=== PATIENT | female | born 1940 | race Caucasian/White ===

== ENCOUNTER 2016-07-06 19:37 | Inpatient (IN) ==
[2016-07-06] MEDS ORDERED: DUONEB NEB STA (20:12)
--- NOTE | 2016-07-06 20:18 | ED.PDOC ---
General ED Provider: Dr. SULY KING Chief Complaint: Respiratory Complaint Stated Complaint: Patient is a 75 year old female who comes to the ER with complains of cough shortness of breath and wheezing for the past two days. She was prescribed steroids and Keflex but has not filled the medications. She felt more short of breath then came to the ER Denies any sore throat. Time Seen by Physician: 20:15 Mode of Arrival: Wheelchair Information Source: Patient Exam Limitations: No limitations Primary Care Provider: MARA KENT Seen Within Last 72 Hours for Same Complaint By: Clinic, PCP Nursing and Triage Documentation Reviewed and Agree: Yes Respiratory Complaint Exam - Shortness of Air Complaint/Exam Onset/Duration: 1 day Symptoms Are: Still present Timing: Constant Initial Severity: Moderate Current Severity: Severe Character: Reports: Dyspnea on exertion Aggravating: Reports: URI Associated Signs and Symptoms: Reports: Wheezing, Edema Pulmonary Embolism Risk Factors: Reports: None Cardiac Risk Factors: Reports: None Pseudomonas Risk Factors: Reports: None Review of Systems - Review Of Systems Constitutional: Reports: No symptoms Eyes: Reports: No symptoms Ears, Nose, Mouth, Throat: Reports: No symptoms Respiratory: Reports: Cough, Short of air, Wheezing Cardiac: Reports: No symptoms GI: Reports: No symptoms : Reports: No symptoms Musculoskeletal: Reports: No symptoms Skin: Reports: No symptoms Neurological: Reports: Anxiety Endocrine: Reports: No symptoms Hematologic/Lymphatic: Reports: No symptoms All Other Systems: Reviewed and Negative Past Medical History - Past Medical History Endocrine: Reports: DM 2, Hypothyroid, Dyslipidemia Cardiovascular: Reports: Hypertension, CHF Respiratory: Reports: None Hematological: Reports: None Gastrointestinal: Reports: GERD Genitourinary: Reports: None Neuro/Psych: Reports: Seizure, Depression, Dementia Musculoskeletal: Reports: Arthritis Cancer: Reports: None Last Menstrual Period: UNKNOWN - Surgical History General Surgical History: Reports: Other (cataracts Eye Bilaterally) - Family History Family History: Reports: Diabetes - Social History Smoking Status: Never smoker Hx Substance Use: No Alcohol Screening: None Physical Exam - Physical Exam Appearance: Ill-appearing Eyes: ALEXIS, EOMI, Conjunctiva clear Neck: Supple Respiratory: Rhonchi, Wheezes GI/: Soft, Nontender, No masses, Bowel sounds normal, No Organomegaly Musculoskeletal: Edema (2-3 +) Skin: Warm Neurological: Sensation intact, Motor intact, Reflexes intact, Cranial nerves intact, Alert, Oriented Psychiatric: Anxious Interpretation - Radiology Interpretation Radiology Interpretation By: Radiologist Radiology Results: Positive (Atelectasis) - Associate Professor Of Library Media Rate: Normal - EKG Interpretation Time of EKG #1: 20:21 Interpretation: wide QRS rhythm, LBB EKG Comparison: No significant changes (to one done December 2015) Physician Notification - Case Discussed Physician Notified: Dr Kent Time of Notification: 21:35 (Admit to mena ) Critical Care Note - Critical Care Note Total Time (mins): 15 Course - Course Hematology/Chemistry: 07/06/16 20:25 07/06/16 20:25 Orders, Labs, Meds: Lab Review 07/06/16 07/06/16 07/06/16 20:12 20:25 21:11 WBC 7.51 RBC 4.64 Hgb 13.7 Hct 40.4 MCV 87.1 MCH 29.5 MCHC 33.9 RDW Coeff of Black 13.8 Plt Count 196 Immature Gran % (Auto) 0.8 Neut % (Auto) 84.4 Lymph % (Auto) 12.9 [place] % (Auto) 1.5 Eos % (Auto) 0.1 Baso % (Auto) 0.3 Immature Gran # (Auto) 0.1 Neut # 6.3 Lymph # 1.0 [place] # 0.1 L Eos # 0.0 Baso # 0.0 Puncture Site Lb O2 Saturation 96.0 ABG pH 7.394 ABG pCO2 31.4 L ABG pO2 84.0 L ABG HCO3 19.2 L ABG Total CO2 20 L ABG Base Excess -6 L Gregorio Test + FiO2 % 21.0 Sodium 134 L Potassium 4.3 Chloride 100 Carbon Dioxide 20 L Anion Gap 18.3 BUN 13 Creatinine 0.84 Estimated GFR (MDRD) 66.00 BUN/Creatinine Ratio 15.47 Glucose 341 H Lactic Acid 33.9 H Calcium 9.4 Total Bilirubin 0.44 AST 21 ALT 30 Alkaline Phosphatase 73 Total Creatine Kinase 32 Troponin I < 0.0100 B-Natriuretic Peptide 494 H Total Protein 7.8 Albumin 3.4 Globulin 4.4 Albumin/Globulin Ratio 0.77 Procalcitonin < 0.05 Urine Color Yellow Urine Clarity Clear Urine pH 7.0 Ur Specific [place] 1.015 Urine Protein Negative Urine Glucose (UA) 2+ Urine Ketones Trace Urine Blood 1+ Urine Nitrite Negative Urine Bilirubin Negative Urine Urobilinogen 0.2 Ur Leukocyte Esterase Trace Urine Microscopic RBC 5-10 Urine Microscopic WBC 5-10 Ur Squamous Epith Cells Not present Urine Bacteria Trace Orders Category Date Time Status ADMIT PATIENT INPATIENT .TO [facility] (MONITORED BED) ADMISSION 07/06/16 21: 51 Active ABG DRAW REQUEST Stat CARDIO 07/06/16 20:13 Completed ECHOCARDIOGRAM 2D-M MODE Routine CARDIO 07/06/16 21:51 Ordered EKG-(ED ONLY) Stat CARDIO 07/06/16 20:12 Completed NEBULIZER TREATMENT Routine CARDIO 07/06/16 21:57 Ordered NEBULIZER TREATMENT Stat CARDIO 07/06/16 20:13 Completed OXYGEN Routine CARDIO 07/06/16 21:51 Ordered ACTIVITY .Up ad Jesusita CARE 07/06/16 21:52 Active BLOOD GLUCOSE MONITORING 0630,1100,1700,2100 CARE 07/06/16 21:53 Active INTAKE & OUTPUT Q8HR CARE 07/06/16 21:51 Active TELEMETRY MONITORING TELE CARE 07/06/16 21:52 Active VITAL SIGNS Q4HR CARE 07/06/16 21:52 Active 2 GRAM SODIUM DIET DIETARY 07/06/16 Breakfast Ordered CARDIAC DIET DIETARY 07/06/16 Breakfast Ordered ED IV/MEDIPORT/POWERPORT .ONCE EMERGENCY 07/06/16 20:12 Active ABG Stat LAB 07/06/16 20:12 Completed B-TYPE NATRIURETIC PEPTIDE Stat LAB 07/06/16 20:25 Completed BLOOD CULTURE Stat LAB 07/06/16 20:25 Received CBC W/ AUTO DIFF DAILY@0600 LAB 07/07/16 06:00 Ordered CBC W/ AUTO DIFF DAILY@0600 LAB 07/08/16 06:00 Ordered CBC W/ AUTO DIFF DAILY@0600 LAB 07/09/16 06:00 Ordered CBC W/ AUTO DIFF DAILY@0600 LAB 07/10/16 06:00 Ordered CBC W/ AUTO DIFF DAILY@0600 LAB 07/11/16 06:00 Ordered CBC W/ AUTO DIFF DAILY@0600 LAB 07/12/16 06:00 Ordered CBC W/ AUTO DIFF DAILY@0600 LAB 07/13/16 06:00 Ordered CBC W/ AUTO DIFF DAILY@0600 LAB 07/14/16 06:00 Ordered CBC W/ AUTO DIFF DAILY@0600 LAB 07/15/16 06:00 Ordered CBC W/ AUTO DIFF DAILY@0600 LAB 07/16/16 06:00 Ordered CBC W/ AUTO DIFF DAILY@0600 LAB 07/17/16 06:00 Ordered CBC W/ AUTO DIFF DAILY@0600 LAB 07/18/16 06:00 Ordered CBC W/ AUTO DIFF DAILY@0600 LAB 07/19/16 06:00 Ordered CBC W/ AUTO DIFF DAILY@0600 LAB 07/20/16 06:00 Ordered CBC W/ AUTO DIFF DAILY@0600 LAB 07/21/16 06:00 Ordered CBC W/ AUTO DIFF DAILY@0600 LAB 07/22/16 06:00 Ordered CBC W/ AUTO DIFF DAILY@0600 LAB 07/23/16 06:00 Ordered CBC W/ AUTO DIFF DAILY@0600 LAB 07/24/16 06:00 Ordered CBC W/ AUTO DIFF DAILY@0600 LAB 07/25/16 06:00 Ordered CBC W/ AUTO DIFF DAILY@0600 LAB 07/26/16 06:00 Ordered CBC W/ AUTO DIFF Stat LAB 07/06/16 20:25 Completed COMPREHENSIVE METABOLIC PANEL DAILY@0600 LAB 07/07/16 06:00 Ordered COMPREHENSIVE METABOLIC PANEL DAILY@0600 LAB 07/08/16 06:00 Ordered COMPREHENSIVE METABOLIC PANEL DAILY@0600 LAB 07/09/16 06:00 Ordered COMPREHENSIVE METABOLIC PANEL DAILY@0600 LAB 07/10/16 06:00 Ordered COMPREHENSIVE METABOLIC PANEL DAILY@0600 LAB 07/11/16 06:00 Ordered COMPREHENSIVE METABOLIC PANEL DAILY@0600 LAB 07/12/16 06:00 Ordered COMPREHENSIVE METABOLIC PANEL DAILY@0600 LAB 07/13/16 06:00 Ordered COMPREHENSIVE METABOLIC PANEL DAILY@0600 LAB 07/14/16 06:00 Ordered COMPREHENSIVE METABOLIC PANEL DAILY@0600 LAB 07/15/16 06:00 Ordered COMPREHENSIVE METABOLIC PANEL DAILY@0600 LAB 07/16/16 06:00 Ordered COMPREHENSIVE METABOLIC PANEL DAILY@0600 LAB 07/17/16 06:00 Ordered COMPREHENSIVE METABOLIC PANEL DAILY@0600 LAB 07/18/16 06:00 Ordered COMPREHENSIVE METABOLIC PANEL DAILY@0600 LAB 07/19/16 06:00 Ordered COMPREHENSIVE METABOLIC PANEL DAILY@0600 LAB 07/20/16 06:00 Ordered COMPREHENSIVE METABOLIC PANEL DAILY@0600 LAB 07/21/16 06:00 Ordered COMPREHENSIVE METABOLIC PANEL DAILY@0600 LAB 07/22/16 06:00 Ordered COMPREHENSIVE METABOLIC PANEL DAILY@0600 LAB 07/23/16 06:00 Ordered COMPREHENSIVE METABOLIC PANEL DAILY@0600 LAB 07/24/16 06:00 Ordered COMPREHENSIVE METABOLIC PANEL DAILY@0600 LAB 07/25/16 06:00 Ordered COMPREHENSIVE METABOLIC PANEL DAILY@0600 LAB 07/26/16 06:00 Ordered COMPREHENSIVE METABOLIC PANEL Stat LAB 07/06/16 20:25 Completed CREATINE KINASE Q8H LAB 07/07/16 04:00 Ordered CREATINE KINASE Q8H LAB 07/07/16 12:00 Ordered CREATINE KINASE Stat LAB 07/06/16 20:25 Completed LACTIC ACID Stat LAB 07/06/16 20:25 Completed PROCALCITONIN Stat LAB 07/06/16 20:25 Completed TROPONIN I Q8H LAB 07/07/16 04:00 Ordered TROPONIN I Q8H LAB 07/07/16 12:00 Ordered TROPONIN I Stat LAB 07/06/16 20:25 Completed URINALYSIS C & S IF INDICATED Stat LAB 07/06/16 21:11 Completed URINE CULTURE Stat LAB 07/06/16 21:11 Received 0.9 % Sodium Chloride [Saline Flush] MEDS 07/06/16 20:12 Ordered 1 syr IVF PRN PRN Benzonatate [Tessalon Perles] MEDS 07/06/16 21:51 Ordered 100 mg PO TID PRN Enoxaparin Sodium [Lovenox] MEDS 07/07/16 09:00 Ordered 40 mg SUBCUT DAILY Furosemide [Lasix] MEDS 07/07/16 06:30 Ordered 20 mg IVP QDAC Insulin Regular, Human [Humulin R] MEDS 07/06/16 21:51 Ordered 0 - 15 unit SUBCUT PRN PRN Ipratropium/Albuterol Neb [Duoneb] MEDS 07/06/16 20:12 Discontinued 1 vial NEB ONCE STA Levalbuterol HCl [Xopenex 0.63 mg] MEDS 07/06/16 21:51 Ordered 1 vial NEB RTBID PRN Levofloxacin/D5w [Levaquin] 150 ml MEDS 07/06/16 21:35 Discontinued IV .STK-MED Levofloxacin/D5w [Levaquin] 500 mg MEDS 07/07/16 09:00 Ordered Premix 100 ml D5w 1 bag IV DAILY Levofloxacin/D5w [Levaquin] 750 mg MEDS 07/06/16 21:05 Discontinued Premix 150 ml D5w 1 bag IV ONCE Methylprednisolone Sod Succ/Pf [Solu-Medrol 125 mg] MEDS 07/07/16 05:00 Ordered 125 mg IVP Q8HR Ondansetron HCl/Pf [Zofran 4 mg/2 ml] MEDS 07/06/16 21:51 Ordered 4 mg IVP Q6H PRN RESUSCITATION STATUS Routine OTHERS 07/06/16 21:51 Completed CHEST, 1V AP ONLY Stat RADS 07/06/16 20:12 Completed Medications Generic Name Dose Route Start Last Admin Trade Name Freq PRN Reason Stop Dose Admin Amlodipine Besylate 5 mg 07/07/16 09:00 Norvasc PO DAILY [facility] Aspirin 81 mg 07/07/16 09:00 Aspirin Ec PO DAILY [facility] Benzonatate 100 mg 07/06/16 21:51 Tessalon Perles PO TID PRN Cough Divalproex Sodium 500 mg 07/07/16 09:00 Depakote PO BID MARY Divalproex Sodium 500 mg 07/07/16 00:10 07/07/16 00:30 Depakote PO 07/07/16 00:11 500 mg ONCE STA Administration Enoxaparin Sodium 40 mg 07/07/16 09:00 Lovenox SUBCUT DAILY [facility] Furosemide 20 mg 07/07/16 06:30 Lasix IVP QDAC [facility] Levofloxacin/Dextrose 500 mg/ 100 mls @ 100 mls/hr 07/07/16 09:00 Dextrose IV DAILY [facility] Insulin Human Regular 0 - 15 unit 07/06/16 21:51 Humulin R SUBCUT PRN PRN Hyperglycemica Protocol Levalbuterol HCl 1 vial 07/06/16 21:51 Xopenex 0.63 Mg NEB RTBID PRN Wheezing Levothyroxine Sodium 75 mcg 07/07/16 06:30 Synthroid PO QDAC [facility] Methylprednisolone Sodium Succinate 125 mg 07/07/16 05:00 Solu-Medrol 125 Mg IVP Q8HR [facility] Non-Formulary Medication 40 mg 07/07/16 09:00 Atorvastatin Calcium [Lipitor] PO DAILY [facility] Non-Formulary Medication 25 mg 07/07/16 09:00 Carvedilol [Coreg] PO DAILY [facility] Non-Formulary Medication 10 mg 07/07/16 09:00 Glipizide [Glucotrol] PO DAILY [facility] Non-Formulary Medication 1,000 unit 07/07/16 09:00 Cholecalciferol (Vitamin D3) [Vitamin D3] PO DAILY MARY Non-Formulary Medication 300 mg 07/07/16 09:00 Oxcarbazepine [Trileptal] PO DAILY MARY Non-Formulary Medication 600 mg 07/07/16 21:00 Oxcarbazepine [Trileptal] PO 2100 MARY Non-Formulary Medication 1 each 07/07/16 09:00 [place]-3 Fatty Acids/Fish Oil [Fish Oil 1,000 Mg Capsule] PO DAILY MARY Ondansetron HCl 4 mg 07/06/16 21:51 Zofran 4 Mg/2 Ml IVP Q6H PRN Nausea / Vomiting Sodium Chloride 1 syr 07/06/16 20:12 07/06/16 22:43 Saline Flush IVF 1 syr PRN PRN Administration To flush IV Discontinued Medications Generic Name Dose Route Start Last Admin Trade Name Freq PRN Reason Stop Dose Admin Albuterol/Ipratropium 1 vial 07/06/16 20:12 07/06/16 20:22 Duoneb NEB 07/06/16 20:13 1 vial ONCE STA Administration Furosemide 20 mg 07/06/16 22:25 07/06/16 22:44 Lasix IVP 07/06/16 22:26 20 mg ONCE STA Administration Levofloxacin/Dextrose 750 mg/ 150 mls @ 100 mls/hr 07/06/16 21:05 07/06/16 22 :00 Dextrose IV 07/06/16 22:34 100 mls/hr ONCE STA Administration Insulin Human Regular 8 unit 07/06/16 22:23 07/06/16 22:46 Humulin R SUBCUT 07/06/16 22:24 8 unit ONCE STA Administration Methylprednisolone Sodium Succinate 125 mg 07/06/16 22:06 07/06/16 22:39 Solu-Medrol 125 Mg IVP 07/06/16 22:07 125 mg ONCE STA Administration Vital Signs: Temp Pulse Resp BP Pulse Ox 07/06/16 19:40 97.7 F 95 H 20 159/86 H 95 Departure - Departure Time of Disposition: 22:11 Disposition: ADMITTED INPATIENT Discharge Problem: CHF exacerbation Qualifiers: Congestive heart failure type: systolic Qualifier Code: (I50.23) Acute on chronic systolic (congestive) heart failure Acute bronchitis Qualifiers: Bronchitis organism: other organism Qualifier Code: (J20.8) Acute bronchitis due to other specified organisms Condition: Stable Pt referred to PMD for follow-up: No Allergies/Adverse Reactions: Allergies Iodine and Iodide Containing Produc Adverse Reaction (Verified 07/06/16 19:48) Home Medications: Ambulatory Orders Aspirin [Adult Low Dose Aspirin EC] 81 mg PO DAILY 01/04/16 Atorvastatin Calcium [Lipitor] 40 mg PO DAILY 01/04/16 Carvedilol [Coreg] 25 mg PO DAILY 01/04/16 Divalproex Sodium [Depakote] 500 mg PO BID 01/04/16 Furosemide 20 mg PO QDAC 01/04/16 Glipizide [Glucotrol] 10 mg PO QDAC 01/04/16 Levothyroxine Sodium [Synthroid] 75 mcg PO QDAC 01/04/16 Oxcarbazepine [Trileptal] 300 mg PO DAILY 01/04/16 Sitagliptin Phos/Metformin HCl [Janumet 50-500 mg Tablet] 1 tab PO 1700 Oxcarbazepine [Trileptal] 600 mg PO BEDTIME 01/05/16 Amlodipine Besylate 5 mg PO DAILY 07/06/16 Cholecalciferol (Vitamin D3) [Vitamin D3] 1,000 unit PO DAILY 07/06/16 [place]-3 Fatty Acids/Fish Oil [Fish Oil 1,000 mg Capsule] 1 each PO DAILY Furosemide 20 mg PO DAILY PRN 07/07/16
[2016-07-06 20:39] LABS: BASOPHILS % (AUTO) 0.3 % (0.0-3.0); EOSINOPHILS % (AUTO) 0.1 % (0.0-7.0); HEMATOCRIT 40.4 % (37.0-47.0); HEMOGLOBIN 13.7 g/dl (12.0-16.0); IMMATURE GRANULOCYTE % (AUTO) 0.8 % (0.0-5.0); LYMPHOCYTES % (AUTO) 12.9 (10.0-50.0); MEAN CORPUSCULAR HEMOGLOBIN 29.5 pg (27.0-31.0); MEAN CORPUSCULAR HGB CONC 33.9 (31.8-35.4); MEAN CORPUSCULAR VOLUME 87.1 fl (81.0-99.0); MONOCYTES # (AUTO) 0.1 K/uL (0.4-2.0); MONOCYTES % (AUTO) 1.5 (0-10); NEUTROPHILS # (AUTO) 6.3 K/ul (2.0-6.9); NEUTROPHILS % (AUTO) 84.4; PLATELET COUNT 196 10^3/uL (140-440); RED BLOOD COUNT 4.64 10^6/ul (4.20-5.40); WHITE BLOOD COUNT 7.51 K/ul (4.6-10.2)
[2016-07-06 20:40] LABS: ABG BASE EXCESS -6 (-2.0-2.0); ABG HCO3 19.2 (22.0-26.0); ABG PCO2 31.4 mmHg (35-45); ABG PH 7.394 (7.35-7.45); ABG TCO2 20 (22.0-28.0)
[2016-07-06 21:05] LABS: ALANINE AMINOTRANSFERASE 30 U/L (12-78); ALBUMIN 3.4 g/dL (3.4-5.0); ALBUMIN/GLOBULIN RATIO 0.77; ALKALINE PHOSPHATASE 73 U/L (53-141); ANION GAP 18.3; ASPARTATE AMINO TRANSFERASE 21 U/L (15-37); BILIRUBIN,TOTAL 0.44 mg/dL (0.00-1.20); BLOOD UREA NITROGEN 13 mg/dL (7-18); BUN/CREATININE RATIO 15.47; CALCIUM 9.4 mg/dL (8.2-10.2); CARBON DIOXIDE 20 mmol/L (23-31); CHLORIDE 100 mmol/L (98-107); CREATINE KINASE 32 U/L; CREATININE 0.84 mg/dL (0.60-1.30); GLUCOSE 341 mg/dL (82-115); POTASSIUM 4.3 mmol/L (3.5-5.10); SODIUM 134 mmol/L (136-145); TOTAL PROTEIN 7.8 g/dL (5.8-8.1)
[2016-07-06] MEDS ORDERED: LEVAQUIN 750 MG in PREMIX 150 ML D5W 1 BAG IV STA (21:05)
--- NOTE | 2016-07-06 21:09 | DI ---
EXAM: Single view chest. HISTORY: Shortness of breath COMPARISON: 08/22/2007 FINDINGS: A single portable AP view of the chest. The lung volumes are normal. Bibasilar opacit ies seen which may be due to atelectasis. This is situated by low lung volumes and soft tissue atte nuation. The heart size and pulmonary vasculature are within normal limits. There are no suspiciou s pulmonary nodules. The pulmonary interstitium is normal. The aorta is tortuous and calcified. The osseous structures show mild degenerative changes consistent with age. IMPRESSION: Bibasilar atelectasis. Recommend follow-up PA and lateral views of the chest if symptoms persist.
[2016-07-06] MEDS ORDERED: LEVAQUIN 150 ML IV ONE (21:35)
[2016-07-06 21:40] LABS: BILIRUBIN,URINE Negative (NEGATIVE); KETONES,URINE Trace (NEGATIVE); LEUKOCYTE ESTERASE ,URINE Trace (NEGATIVE); NITRITE,URINE Negative (NEGATIVE); PROTEIN,URINE Negative (NEGATIVE); URINE, BLOOD 1+ (NEGATIVE)
[2016-07-06 21:41] LABS: ADD URINE MICROSCOPIC YES
[2016-07-06 21:42] LABS: BACTERIA,URINE TRACE (NOT PRESENT)
[2016-07-06] MEDS ORDERED: XOPENEX 0.63 MG NEB PRN (21:51)
[2016-07-06] MEDS ORDERED: ZOFRAN 4 MG/2 ML IVP PRN (21:51)
[2016-07-06] MEDS ORDERED: TESSALON PERLES PO PRN (21:51)
[2016-07-06] MEDS ORDERED: SOLU-MEDROL 125 MG IVP STA (22:06)
[2016-07-06] MEDS ORDERED: HUMULIN R SUBCUT STA (22:23)
[2016-07-06] MEDS ORDERED: LASIX IVP STA (22:25)
[2016-07-06 23:50] VITALS: BMI 32.0
[2016-07-07] MEDS ORDERED: DEPAKOTE PO STA (00:10)
[2016-07-07] MEDS ORDERED: DEPAKOTE ONE (00:15)
[2016-07-07] MEDS ORDERED: TYLENOL PO STA ×2 (02:35→21:58)
[2016-07-07] MEDS: SYNTHROID PO SCH (06:08)
[2016-07-07] MEDS: LASIX IVP SCH (06:09)
[2016-07-07] MEDS: SOLU-MEDROL 125 MG IVP SCH ×3 (06:11→20:27)
[2016-07-07 06:27] LABS: BASOPHILS % (AUTO) 0.3 % (0.0-3.0); HEMATOCRIT 38.3 % (37.0-47.0); HEMOGLOBIN 13.1 g/dl (12.0-16.0); IMMATURE GRANULOCYTE % (AUTO) 1.3 % (0.0-5.0); LYMPHOCYTES % (AUTO) 15.6 (10.0-50.0); MEAN CORPUSCULAR HEMOGLOBIN 29.4 pg (27.0-31.0); MEAN CORPUSCULAR HGB CONC 34.2 (31.8-35.4); MEAN CORPUSCULAR VOLUME 86.1 fl (81.0-99.0); MONOCYTES # (AUTO) 0.1 K/uL (0.4-2.0); MONOCYTES % (AUTO) 1.1 (0-10); NEUTROPHILS # (AUTO) 5.2 K/ul (2.0-6.9); NEUTROPHILS % (AUTO) 81.7; PLATELET COUNT 176 10^3/uL (140-440); RED BLOOD COUNT 4.45 10^6/ul (4.20-5.40); WHITE BLOOD COUNT 6.39 K/ul (4.6-10.2)
[2016-07-07 06:43] LABS: ALBUMIN 3.5 g/dL (3.4-5.0); ALBUMIN/GLOBULIN RATIO 0.92; ANION GAP 18.1; BILIRUBIN,TOTAL 0.48 mg/dL (0.00-1.20); BUN/CREATININE RATIO 18.18; CALCIUM 8.8 mg/dL (8.2-10.2); CREATININE 0.77 mg/dL (0.60-1.30); POTASSIUM 4.1 mmol/L (3.5-5.10); TOTAL PROTEIN 7.3 g/dL (5.8-8.1)
[2016-07-07] MEDS: HUMULIN R SUBCUT PRN ×4 (06:54→20:29)
[2016-07-07] MEDS ORDERED: NON-FORMULARY MEDICATION (Atorvastatin Calcium [Lipitor] 40 MG) PO SCH ×22 (09:00)
[2016-07-07] MEDS ORDERED: NON-FORMULARY MEDICATION (Oxcarbazepine [Trileptal] 300 MG) PO SCH (09:00)
[2016-07-07] MEDS ORDERED: NON-FORMULARY MEDICATION (Glipizide [Glucotrol] 10 MG) PO SCH ×22 (09:00)
[2016-07-07] MEDS ORDERED: NON-FORMULARY MEDICATION (Cholecalciferol (Vitamin D3) [Vitamin D3] 1,000 UNIT) PO SCH ×22 (09:00)
[2016-07-07] MEDS ORDERED: NON-FORMULARY MEDICATION (Omega-3 Fatty Acids/Fish Oil [Fish Oil 1,000 Mg Capsule] 1 EACH) PO SCH ×22 (09:00)
[2016-07-07] MEDS ORDERED: NON-FORMULARY MEDICATION (Carvedilol [Coreg] 25 MG) PO SCH ×22 (09:00)
[2016-07-07] MEDS: ASPIRIN EC PO SCH (09:16)
[2016-07-07] MEDS: GLUCOTROL PO SCH (09:16)
[2016-07-07] MEDS: COREG PO SCH (09:16)
[2016-07-07] MEDS: COZAAR PO SCH (09:17)
[2016-07-07] MEDS: LIPITOR PO SCH (09:18)
[2016-07-07] MEDS: DEPAKOTE PO SCH ×2 (09:18→20:26)
[2016-07-07] MEDS: NORVASC PO SCH (09:20)
[2016-07-07] MEDS: LOVENOX SUBCUT SCH (09:20)
[2016-07-07] MEDS: OMEGA-3 FISH OIL PO SCH (09:20)
[2016-07-07] MEDS: VITAMIN D PO SCH (09:21)
[2016-07-07] MEDS: TRILEPTAL PO SCH (09:21)
--- NOTE | 2016-07-07 10:25 | PCM.PROG ---
Attending Provider: ATTENDING PROVIDER: Dr. MARA KENT DATE OF SERVICE: 07/07/16 SUBJECTIVE: This 75 year old WHITE/ F was hospitalized 07/06/16. The patient is hospitalized with acute bronchitis, possibility of CHF. No orthopnea, no PND. No chest pain. The patient complains of a mild cough. She states she her appetite is normal. Hydration status is better than yesterday. REVIEW OF SYSTEMS: CONSTITUTIONAL: No night sweats. No fatigue, malaise, lethargy. No fever or chills. HEENT: Eyes: No visual changes. No eye pain. No eye discharge. ENT: No runny nose. No epistaxis. No sinus pain. No odynophagia. No congestion. RESPIRATORY: Mild cough and congestion. No hemoptysis. CARDIOVASCULAR: No angina symptoms. No CHF symptoms. No atypical chest pain for CAD. No palpitations. No shortness of breath. GASTROINTESTINAL: No abdominal pain. No nausea or vomiting. No diarrhea or constipation. No hematemesis. No hematochezia. GENITOURINARY: No urgency. No frequency. No dysuria. No hematuria. No obstructive symptoms. No discharge. No pain. No significant abnormal bleeding. MUSCULOSKELETAL: No musculoskeletal pain; no joint swelling. NEUROLOGICAL: Awake, alert, oriented to time, place and person. No headache. No neck pain. No syncope. No seizures. No dizziness. PSYCHIATRIC: Not anxious. No depression. No suicidal thoughts. No homicidal thoughts. SKIN: No rash. No lesions. No wounds. ENDOCRINE: No unexplained weight loss. No weight gain. HEMATOLOGIC/LYMPHATIC: No anemia. No purpura. No petechiae. No prolonged or excessive bleeding. No palpable lymph nodes. PHYSICAL EXAMINATION: GENERAL: The patient is awake, alert and oriented, lying flat in bed in no distress. VITAL SIGNS: Temperature 97.4 F, Pulse 69, Respiratory Rate 21, BP 168/83, Pulse Ox 97% HEENT: Head normocephalic, atraumatic. Eyes: Extraocular muscles are intact. Pupils are equal, round and reactive to light and accommodation. Ears: No lesions. Nose appeared normal. Throat: No exudate or erythema. NECK: Supple. No JVD, no carotid bruit. No lymphadenopathy or thyromegaly. LUNGS: Decreased breath sounds. Percussion note normal. Chest symmetrical. HEART: S1, S2, no S3. No murmurs. No cyanosis or clubbing. No ascites. Pulses: Dorsalis pedis and posterior tibial pulses +1 to +2 both sides. ABDOMEN: Soft. Non-tender. Bowel sounds active. No CVA tenderness. No mass felt. EXTREMITIES: Trace edema. Full range of motion of all extremities, equal. NEUROLOGIC: No focal deficit. Cranial nerves II through XII are grossly intact. No headache, no double vision or headache. SKIN: Not dry. Intact. Turgor-normal. LYMPHATIC: No palpable lymph nodes/no lymphedema. MUSCULOSKELETAL: Normal joints with no swelling. Muscle tone is normal. LAB REVIEW: 07/07/16 06:00 07/07/16 06:00 07/07/16 06:00: WBC 6.39, RBC 4.45, Hgb 13.1, Hct 38.3, MCV 86.1, MCH 29.4, MCHC 34.2, RDW Coeff of Black 13.6, Plt Count 176, Immature Gran % (Auto) 1.3, Neut % (Auto) 81.7, Lymph % (Auto) 15.6, [place] % (Auto) 1.1, Eos % (Auto) 0.0, Baso % (Auto) 0.3, Immature Gran # (Auto) 0.1, Neut # 5.2, Lymph # 1.0, [place] # 0.1 L, Eos # 0.0, Baso # 0.0, Sodium 134 L, Potassium 4.1, Chloride 98, Carbon Dioxide 22 L, Anion Gap 18.1, BUN 14, Creatinine 0.77, Estimated GFR (MDRD) 73.00, BUN/Creatinine Ratio 18.18, Glucose 174 H D, Lactic Acid 32.4 H, Calcium 8.8, Total Bilirubin 0.48, AST 19, ALT 29, Alkaline Phosphatase 71, Troponin I < 0.0100, Total Protein 7.3, Albumin 3.5, Globulin 3.8, Albumin/Globulin Ratio 0.92 ASSESSMENT: 1. Acute bronchitis, possible CHF 2. Hypertension 3. Diabetes mellitus type 2 4. Hypothyroidism 5. Dyslipidemia 6. CHF 7. GERD 8. Sleep apnea with CPAP 9. Bilateral lens implants PLAN: 1. T4 and TSH 2. BNP tomorrow 3. Echocardiogram 4. Cozaar 50 mg p.o. today and daily 5. Rapid Flu A & B 6. Xopenex q.i.d. 7. Continue other medications Plan and coordination of the patient's care discussed in the presence of Domestic Helper and nurse. CONDITION: Stable SCRIBED BY: CLAUDIA MCCALL Clay Pigeon Loader scribed while in presence of service performed by Dr. MARA KENT on 07/07/16 ([id number])
[2016-07-07 10:30] LABS: CREATINE KINASE 27 U/L
[2016-07-07] MEDS: XOPENEX 1.25 MG NEB SCH ×3 (11:57→23:16)
[2016-07-07 12:45] LABS: TROPONIN I 0.013 ng/ml (0.0000-0.4000)
--- NOTE | 2016-07-07 13:17 | HP ---
DATE OF SERVICE: 07/06/16 REASON FOR HOSPITALIZATION: Cough and congestion and pneumonitis HISTORY OF PRESENT ILLNESS: The patient is a 65 year old white female was seen in the office with cough and congestion with yellowish sputum production of three days duration in the office. The patient was given PO antibiotics were steroid shot Phenergan with codeine and Prednisone. The patient ended up in the ER with worsening of the condition in the mean time. REVIEW OF SYSTEMS: CONSTITUTIONAL: No night sweats. Weakness and fatigue. No fever or chills. HEENT: Eyes: No visual changes. No eye pain. No eye discharge. ENT: No runny nose. No epistaxis. No sinus pain. No sore throat. No odynophagia. No ear pain. No congestion.Sinus drainage. RESPIRATORY: Cough and congestion with yellowish sputum production. No hemoptysis. CARDIOVASCULAR: No angina symptoms. No CHF symptoms. No atypical chest pain for CAD. No palpitations. No shortness of breath. Pleuritic type of pain bilaterally. No PND. No orthopnea. GASTROINTESTINAL: No abdominal pain. No nausea or vomiting. No diarrhea or constipation. No hematemesis. No hematochezia. Appetite is so so. No reflux symptoms. GENITOURINARY: No urgency. No frequency. No dysuria. No hematuria. No obstructive symptoms. No discharge. No pain. No significant abnormal bleeding. MUSCULOSKELETAL: No musculoskeletal pain. No joint swelling. No arthritis. NEUROLOGICAL: No headache. No neck pain. No syncope. No seizures. No dizziness. PSYCHIATRIC: Not anxious. No depression. No suicidal thoughts. No homicidal thoughts. SKIN: No rash. No lesions. No wounds. ENDOCRINE: No unexplained weight loss. No weight gain. HEMATOLOGIC/LYMPHATIC: No anemia. No purpura. No petechiae. No prolonged or excessive bleeding. No palpable lymph nodes. PERSONAL/FAMILY/SOCIAL HISTORY: The patient is and lives with the daughter. Non-smoker and no alcohol abuse. She does all activity of daily living. PAST MEDICAL/SURGICAL PROBLEMS: CHF Diabetes Mellitus Hypothyroidism Sleep apnea Cholelithiasis MEDICATIONS: (Home) Depakote Janumet Trileptal Glipizide Furosemide Coreg Lipitor Aspirin Levothyroxine Trileptal Vitamin D3 Amlodipine Besylate [place]-3 Furosemide ALLERGIES: Iodine and Iodide containing Produc PHYSICAL EXAMINATION: GENERAL: The patient is oriented to time, place and person. VITAL SIGNS: Temperature 98.4, pulse 70, respiratory rate 16, blood pressure 140/80 and pulse ox 96% on room air. Height 5'4 and weighs 185 pounds with BMI 32. HEENT: Head normocephalic, atraumatic. Eyes: Extraocular muscles are intact. Pupils are equal, round and reactive to light and accommodation. Ears: No lesions. Nose appeared normal. Throat: No exudate or erythema. NECK: Supple. No JVP, no carotid bruit. No lymphadenopathy or thyromegaly. LUNGS: Decreased breath sounds with mild wheeze. Percussion note normal. Chest symmetrical. HEART: S1, S2, no S3. No murmurs. No cyanosis or clubbing. No ascites. Pulses: Dorsalis pedis and posterior tibial pulses +1 to +2 both sides. ABDOMEN: Soft. Nontender. Bowel sounds active. No CVA tenderness. No mass felt. EXTREMITIES: Trace to 1+ pitting edema. Full range of motion of all extremities, equal. Pulses +1 bilaterally. NEUROLOGIC: No focal deficit. Cranial nerves II through XII are grossly intact. No headache, no double vision or headache. SKIN: Dry. Intact. Turgor - normal. LYMPHATIC: No palpable lymph nodes/no lymphedema. MUSCULOSKELETAL: Normal joints with no swelling. Muscle tone is normal. ASSESSMENT: 1. Acute bronchitis/ Pneumonitis 2. History of CHF 3. History Seizure disorder 4. Diabetes Mellitus 5. Hypothyroidism 6. Dementia 7. Hypertension 8. Sleep apnea 9. Dyslipidemia 10. Diverticulosis of colon 11. Cholelithiasis PLAN: 1. IV antibiotics 2. Levaquin 3. Solu-Cortef 125mg Q 8 hour 4. Routine telemetry orders 5. Antitussives 6. NEBS treatment 7. Telemetry 8. IV Lasix 20mg 9. Continue the rest of the home medications 10. Put her on sliding scale, the patient glucose is more than 300. She is going to up with the IV insulin. 11. The patient's lactic acid level is high. Will discontinue Janumet since creatinine and BUN is normal 12. Will also do echocardiogram which was supposed for her MV function evaluation. TIME SPENT: More than 70 minutes. [facility]
[2016-07-07 13:55] LABS: FLU INTERNAL QC INTERNAL QC VALID; RAPID FLU A NEGATIVE (NEGATIVE); RAPID FLU B NEGATIVE (NEGATIVE)
--- NOTE | 2016-07-07 16:02 | RS.SLPCNOT ---
Speech Case Note Date of Note: 07/07/16 Title: Speech Screen Note: LAW REPORTER was consulted for swallow screen with reports of coughing/choking when eating and swallows multiple times for single bite. LAW REPORTER completed chart review which was significant for CHF, dementia, and acute bronchitis. LAW REPORTER completed screeen with RN and pt. RN reported no concerns for swallow difficulty , including swallowing medications. LAW REPORTER verbally questioned pt, who stated no concerns with swallow function. LAW REPORTER utilized laryngeal palpation with four trials of thin liquids via straw. No overt s/s of aspiration noted. Laryngeal elevation was WNL. LAW REPORTER noted 1x multiple swallow. LAW REPORTER recommends no skilled ST at this time.
[2016-07-07] MEDS ORDERED: OXCARBAZEPINE 600 MG PO SCH (21:00)
[2016-07-07] MEDS ORDERED: LEVAQUIN 500 MG in PREMIX 100 ML D5W 1 BAG IV SCH (21:00)
[2016-07-07] MEDS ORDERED: TRILEPTAL PO SCH (21:00)
[2016-07-07] MEDS ORDERED: TYLENOL ONE (21:57)
[2016-07-08] MEDS: XOPENEX 1.25 MG NEB SCH ×2 (05:13→11:08)
[2016-07-08] MEDS: SYNTHROID PO SCH (05:49)
[2016-07-08] MEDS: LASIX IVP SCH (05:49)
[2016-07-08] MEDS: SOLU-MEDROL 125 MG IVP SCH ×2 (05:50→14:38)
[2016-07-08] MEDS: HUMULIN R SUBCUT PRN ×3 (06:11→17:05)
[2016-07-08 06:48] LABS: BASOPHILS % (AUTO) 0.1 % (0.0-3.0); HEMATOCRIT 35.9 % (37.0-47.0); HEMOGLOBIN 12.8 g/dl (12.0-16.0); LYMPHOCYTES # (AUTO) 1.4 K/uL (0.60-3.4); LYMPHOCYTES % (AUTO) 12.7 (10.0-50.0); MEAN CORPUSCULAR HEMOGLOBIN 29.8 pg (27.0-31.0); MEAN CORPUSCULAR HGB CONC 35.7 (31.8-35.4); MEAN CORPUSCULAR VOLUME 83.7 fl (81.0-99.0); MONOCYTES # (AUTO) 0.3 K/uL (0.4-2.0); MONOCYTES % (AUTO) 2.8 (0-10); NEUTROPHILS % (AUTO) 83.4; PLATELET COUNT 192 10^3/uL (140-440); RED BLOOD COUNT 4.29 10^6/ul (4.20-5.40); WHITE BLOOD COUNT 10.75 K/ul (4.6-10.2)
[2016-07-08 07:05] LABS: ALBUMIN 3.6 g/dL (3.4-5.0); ANION GAP 18.1; BILIRUBIN,TOTAL 0.47 mg/dL (0.00-1.20); BUN/CREATININE RATIO 26.58; CALCIUM 9.2 mg/dL (8.2-10.2); CREATININE 0.79 mg/dL (0.60-1.30); POTASSIUM 4.1 mmol/L (3.5-5.10); TOTAL PROTEIN 7.2 g/dL (5.8-8.1)
[2016-07-08] MEDS: GLUCOTROL PO SCH (07:57)
[2016-07-08] MEDS: ASPIRIN EC PO SCH (07:57)
[2016-07-08] MEDS: COREG PO SCH (08:10)
[2016-07-08] MEDS: DEPAKOTE PO SCH (09:02)
[2016-07-08] MEDS: VITAMIN D PO SCH (09:02)
[2016-07-08] MEDS: TRILEPTAL PO SCH (09:02)
[2016-07-08] MEDS: OMEGA-3 FISH OIL PO SCH (09:03)
[2016-07-08] MEDS: COZAAR PO SCH (09:03)
[2016-07-08] MEDS: LOVENOX SUBCUT SCH (09:04)
[2016-07-08] MEDS: NORVASC PO SCH (09:04)
[2016-07-08] MEDS: LIPITOR PO SCH (09:04)
--- NOTE | 2016-07-08 12:58 | PCM.PROG ---
Attending Provider: ATTENDING PROVIDER: Dr. MARA KENT DATE OF SERVICE: 07/08/16 SUBJECTIVE: This 75 year old WHITE/ F was hospitalized 07/06/16. The patient is hospitalized with acute bronchitis and chronic lung disease. The patient has dilated cardiomyopathy with CHF, which seems to be under control. The patient states she does feel better. She has been up to the bathroom with standby assistance and using her cane. She states she had a mild cough last with with some phlegm. Discussed plan for discharge. She states she is ready to go home. REVIEW OF SYSTEMS: CONSTITUTIONAL: No night sweats. No fatigue, malaise, lethargy. No fever or chills. HEENT: Eyes: No visual changes. No eye pain. No eye discharge. ENT: No runny nose. No epistaxis. No sinus pain. No odynophagia. No congestion. RESPIRATORY: Mild cough. No hemoptysis. CARDIOVASCULAR: No angina symptoms. No CHF symptoms. No atypical chest pain for CAD. No palpitations. No shortness of breath. GASTROINTESTINAL: No abdominal pain. No nausea or vomiting. No diarrhea or constipation. No hematemesis. No hematochezia. GENITOURINARY: No urgency. No frequency. No dysuria. No hematuria. No obstructive symptoms. No discharge. No pain. No significant abnormal bleeding. MUSCULOSKELETAL: No musculoskeletal pain; no joint swelling. NEUROLOGICAL: Awake, alert, oriented to time, place and person. No headache. No neck pain. No syncope. No seizures. No dizziness. PSYCHIATRIC: Not anxious. No depression. No suicidal thoughts. No homicidal thoughts. SKIN: No rash. No lesions. No wounds. ENDOCRINE: No unexplained weight loss. No weight gain. HEMATOLOGIC/LYMPHATIC: No anemia. No purpura. No petechiae. No prolonged or excessive bleeding. No palpable lymph nodes. PHYSICAL EXAMINATION: GENERAL: The patient is awake, alert and oriented, sitting up in bed in no distress. VITAL SIGNS: Temperature 97.7 F, Pulse 67, Respiratory Rate 20, BP 144/65, Pulse Ox 100% HEENT: Head normocephalic, atraumatic. Eyes: Extraocular muscles are intact. Pupils are equal, round and reactive to light and accommodation. Ears: No lesions. Nose appeared normal. Throat: No exudate or erythema. NECK: Supple. No JVD, no carotid bruit. No lymphadenopathy or thyromegaly. LUNGS: Clear to auscultation. Percussion note normal. Chest symmetrical. HEART: S1, S2, no S3. No murmurs. No cyanosis or clubbing. No ascites. Pulses: Dorsalis pedis and posterior tibial pulses +1 to +2 both sides. ABDOMEN: Soft. Non-tender. Bowel sounds active. No CVA tenderness. No mass felt. EXTREMITIES: No edema. Full range of motion of all extremities, equal. NEUROLOGIC: No focal deficit. Cranial nerves II through XII are grossly intact. No headache, no double vision or headache. SKIN: Not dry. Intact. Turgor-normal. LYMPHATIC: No palpable lymph nodes/no lymphedema. MUSCULOSKELETAL: Normal joints with no swelling. Muscle tone is normal. LAB REVIEW: 07/08/16 06:40 07/08/16 06:40 07/08/16 06:40: WBC 10.75 H, RBC 4.29, Hgb 12.8, Hct 35.9 L, MCV 83.7, MCH 29.8 , MCHC 35.7 H, RDW Coeff of Black 13.3, Plt Count 192, Immature Gran % (Auto) 1.0 , Neut % (Auto) 83.4, Lymph % (Auto) 12.7, [place] % (Auto) 2.8, Eos % (Auto) 0.0, Baso % (Auto) 0.1, Immature Gran # (Auto) 0.1, Neut # 9.0 H, Lymph # 1.4, [place] # 0.3 L, Eos # 0.0, Baso # 0.0, Sodium 129 L, Potassium 4.1, Chloride 92 L, Carbon Dioxide 23, Anion Gap 18.1, BUN 21 H, Creatinine 0.79, Estimated GFR ( MDRD) 71.00, BUN/Creatinine Ratio 26.58, Glucose 215 H, Calcium 9.2, Total Bilirubin 0.47, AST 16, ALT 26, Alkaline Phosphatase 66, B-Natriuretic Peptide 222 H, Total Protein 7.2, Albumin 3.6, Globulin 3.6, Albumin/Globulin Ratio 1.00 07/07/16 13:10: Influenza A (Rapid) Negative, Influenza B (Rapid) Negative 07/07/16 12:00: Total Creatine Kinase 28, Troponin I 0.0130 07/07/16 06:00: Total Creatine Kinase 27, TSH 0.501, Free T4 1.05 ASSESSMENT: 1. Bronchitis, which is a lot better. 2. COPD, under control. 3. CHF, under control. 4. The problem is that the patient has early dementia and is not able to take medication on a regular basis. She lives alone with the help of her daughter. PLAN: 1. Discharge home later today. 2. Levaquin 500 mg p.o. daily for five days 3. Add Prednisone 10 mg b.i.d. for five days 4. Cozaar 50 mg p.o. daily Plan and coordination of the patient's care discussed in the presence of Disability Coordinator and nurse. EDUCATION: Discussed plans for discharge with the patient. Discussed medications and their side effects; risks and benefits of steroids to include avascular necrosis , osteoporosis, cataracts, et cetera. The patient voiced understanding and is in agreement with the plan. CONDITION: Stable. SCRIBED BY: CLAUDIA MCCALL, Carton Liner scribed while in presence of service performed by Dr. MARA KENT on 07/08/16 ([id number])
[2016-07-08] MEDS ORDERED: TYLENOL PO PRN (14:08)
--- NOTE | 2016-07-08 14:46 | CM.DICTOOL ---
ADMISSION: 07/06/16 21:54 FINAL DIAGNOSIS ACUTE BRONCHITIS POSSIBLE CHF SLEEP APNEA (USES C-PAP) DM, TYPE 2 HYPOTHYROIDISM DYSLIPIDEMIA HYPERTENSION CHF BY HISTORY GERD SEIZURES DEMENTIA DEPRESSION/ANXIETY ARTHRITIS BILATERAL CATARACT EXTRACTION WITH LENS IMPLANT LAST VITALS Temp Pulse Resp BP Pulse Ox 97.7 F 67 20 144/65 H 100 07/08/16 06:00 07/08/16 06:00 07/08/16 06:00 07/08/16 06:00 07/08/16 06:00 ACTIVE MEDICATIONS Amlodipine Besylate (Norvasc) 5 mg PO DAILY REPLACED BY [facility] Last Admin: 07/08/16 09:04 Dose: 5 mg Aspirin (Aspirin Ec) 81 mg PO DAILYWM REPLACED BY [facility] Last Admin: 07/08/16 07:57 Dose: 81 mg Atorvastatin Calcium (Lipitor) 40 mg PO DAILY REPLACED BY [facility] Last Admin: 07/08/16 09:04 Dose: 40 mg Carvedilol (Coreg) 25 mg PO DAILYWM REPLACED BY [facility] Last Admin: 07/08/16 08:10 Dose: 25 mg Cholecalciferol (Vitamin D) 1,000 unit PO DAILY REPLACED BY [facility] Last Admin: 07/08/16 09:02 Dose: 1,000 unit Divalproex Sodium (Depakote) 500 mg PO BID REPLACED BY [facility] Last Admin: 07/08/16 09:02 Dose: 500 mg Fish Oil ([place]-3 Fish Oil) 1,000 mg PO DAILY REPLACED BY [facility] Last Admin: 07/08/16 09:03 Dose: 1,000 mg Furosemide (Lasix) 20 mg PO QDAC REPLACED BY [facility] Last Admin: 07/08/16 05:49 Dose: 20 mg Furosemide (Lasix) 20 mg PO DAILY PRN fluid overload Glipizide (Glucotrol) 10 mg PO DAILYWM REPLACED BY [facility] Last Admin: 07/08/16 07:57 Dose: 10 mg Levofloxacin/Dextrose 500 mg PO DAILY X 5 DAYS REPLACED BY [facility] (NEW) Last Admin: 07/07/16 20:26 Dose: 100 mls/hr Levothyroxine Sodium (Synthroid) 75 mcg PO QDAC REPLACED BY [facility] Last Admin: 07/08/16 05:49 Dose: 75 mcg Losartan Potassium (Cozaar) 50 mg PO DAILY REPLACED BY [facility] (NEW) Last Admin: 07/08/16 09:03 Dose: 50 mg Oxcarbazepine (Trileptal) 300 mg PO DAILY REPLACED BY [facility] Last Admin: 07/08/16 09:02 Dose: 300 mg Oxcarbazepine (Trileptal) 600 mg PO BEDTIME MARY Last Admin: 07/07/16 20:26 Dose: 600 mg Prednisone 10 mg PO BID with food x5 days (New) Sitagliptin Phos/Metformin HCL (Janumet) 50-500 mg PO at 1700 daily ALLERGIES Iodine and Iodide Containing Produc Adverse Reaction (Verified 07/06/16 19:48) NEW PRESCRIPTIONS: (PHONED IN TO [facility], [place], [place]) [place] POTASSIUM (COZAAR) 50 MG, TAKE ONE TABLET BY MOUTH DAILY LEVAQUIN 500 MG, TAKE ONE TABLET BY MOUTH DAILY FOR 5 (FIVE) DAYS PREDNISONE 10 MG, TAKE ONE TABLET BY MOUTH TWICE DAILY WITH FOOD FOR 5 (FIVE) DAYS SMOKING: NONSMOKER DISEASE SPECIFIC EDUCATION: BRONCHITIS CHF HOME MEDICATIONS NEW MEDICATIONS FOLLOW UP LAB REVIEW: 07/08/16 06:40 07/08/16 06:40 07/08/16 06:40: WBC 10.75 H, RBC 4.29, Hgb 12.8, Hct 35.9 L, MCV 83.7, MCH 29.8 , MCHC 35.7 H, RDW Coeff of Black 13.3, Plt Count 192, Immature Gran % (Auto) 1.0 , Neut % (Auto) 83.4, Lymph % (Auto) 12.7, [place] % (Auto) 2.8, Eos % (Auto) 0.0, Baso % (Auto) 0.1, Immature Gran # (Auto) 0.1, Neut # 9.0 H, Lymph # 1.4, [place] # 0.3 L, Eos # 0.0, Baso # 0.0, Sodium 129 L, Potassium 4.1, Chloride 92 L, Carbon Dioxide 23, Anion Gap 18.1, BUN 21 H, Creatinine 0.79, Estimated GFR ( MDRD) 71.00, BUN/Creatinine Ratio 26.58, Glucose 215 H, Calcium 9.2, Total Bilirubin 0.47, AST 16, ALT 26, Alkaline Phosphatase 66, B-Natriuretic Peptide 222 H, Total Protein 7.2, Albumin 3.6, Globulin 3.6, Albumin/Globulin Ratio 1.00 07/07/16 13:10: Influenza A (Rapid) Negative, Influenza B (Rapid) Negative 07/07/16 12:00: Total Creatine Kinase 28, Troponin I 0.0130 07/07/16 06:00: TSH 0.501, Free T4 1.05 PLAN: DISCHARGE HOME TODAY RETURN TO SEE DR. KENT IN 5-7 DAYS. PLEASE CALL HIS OFFICE TO SCHEDULE YOUR APPOINTMENT [phone] RESUME YOUR HOME MEDICATIONS PER LIST PROVIDED BY THE NURSING STAFF NEW MEDICATIONS: (PHONED IN TO [facility], [place], [place]) [place] POTASSIUM (COZAAR) 50 MG, TAKE ONE TABLET BY MOUTH DAILY LEVAQUIN 500 MG, TAKE ONE TABLET BY MOUTH DAILY FOR 5 (FIVE) DAYS PREDNISONE 10 MG, TAKE ONE TABLET BY MOUTH TWICE DAILY WITH FOOD FOR 5 (FIVE) DAYS ACTIVITY: GET PLENTY OF REST AT HOME. GRADUALLY INCREASE YOUR ACTIVITY LEVEL ACCORDING TO YOUR TOLERATION DIET: CONSISTENT CARBS SUMMARY: THE PATIENT IS ALERT AND ORIENTED X3. SHE HAS MILD DEMENTIA AND IS FORGETFUL AT TIMES. SHE CURRENTLY RESIDES AT HOME WITH HER DAUGHTER. THE DAUGHTER IS SUPPORTIVE OF THE PATIENT'S NEEDS WHEN NECESSARY. MS. LONG USES A STRAIGHT CANE TO ASSIST WITH AMBULATION. SHE OWNS A ROLLING WALKER BUT IS NOT DEPENDENT ON IT FOR ASSISTANCE. SHE HAS A C-PAP FOR USE AT NIGHT. MS. LONG DESIRES TO RETURN TO HER HOME AT DISCHARGE. HER SKIN TURGOR IS INTACT AND WITHOUT DECUBITUS ULCERS. HER HYDRATION STATUS IS GOOD. SHE IS AFEBRILE AND OFFERS NO COMPLAINTS OF PAIN. SHE IS AWARE AND AGREEABLE FOR DISCHARGE TODAY. MARA KENT M.D.
[2016-07-08 16:09] VITALS: BP 152/68; TEMP 96.9
--- NOTE | 2016-07-11 09:47 | ECHO2D ---
Date of Exam: 07/08/16 Ordering Physician: MARA KENT Reason for Echo: CHF, CARDIOMEGALY M-Mode Normal Adult Results LV Dimensions Normal Adult Results AoV Opening excursions >1.6 >1.6 LVEDD-base- 3.5-5.8 5.5 Ao root dimensions 2.0-3.7 2.8 LVESD-base- 3.1-4.6 L. Atrium dimensions 1.9-3.8 4.7 Post. Wall thickness 0.8-1.1 1.2 IV septum (thickness) 0.7-1.2 1.2 Post. Wall excursion 0.72-1.3 NORMAL Septal motion 0.4 Systolic motion R. Ventricular cavity 1.5-2.0 NORMAL LVEF 60% 45% Paradoxical septal wall motion NORMAL 2-D : HYPOKINETIC LEFT VENTRICLE, NORMAL LEFT VENTRICULAR CONTRACTILITY--NO EFFUSION, NO THROMBUS, ENLARGED LEFT ATRIAL CAVITY M-MODE: MV: NORMAL AV: NORMAL TV: NORMAL PV: CHAMBER SIZE: ENLARGED LEFT ATRIAL CAVITY WALL MOTION: HYPOKINETIC LEFT VENTRICLE PERICARDIUM: NORMAL INTERPRETATION: 1. LEFT VENTRICULAR HYPERTROPHY WITH ENLARGED LEFT ATRIAL CAVITY 2. MILDLY HYPOKINETIC LEFT VENTRICLE WITH LEFT VENTRICULAR EJECTION FRACTION 45% 3. NORMAL VALVES 4. LEFT VENTRICLE CAVITY 5.5 CM MTDD
--- NOTE | 2016-07-14 08:50 | DS ---
DATE OF SERVICE: 07/08/16 FINAL DIAGNOSIS: 1. ACUTE BRONCHITIS 2. POSSIBLE CHF 3. SLEEP APNEA (USES CPAP) 4. DIABETES MELLITUS, TYPE 2 5. HYPOTHYROIDISM 6. DYSLIPIDEMIA 7. HYPERTENSION 8. CHF BY HISTORY 9. GERD 10. SEIZURES 11. DEMENTIA 12. DEPRESSION/ANXIETY 13. ARTHRITIS 14. BILATERAL CATARACT EXTRACTION WITH LENS IMPLANT VITAL SIGNS AT DISCHARGE: Temperature 97.7, pulse 67, respiratory rate 20, BP 144/65, pulse ox 100 DISCHARGE INSTRUCTIONS: Followup appointment: Return to see Dr. Griffin in 5 to 7 days. Please call his office to schedule your appointment. MEDICATIONS AT DISCHARGE: 1. Divalproex (Depakote) 500 mg p.o. b.i.d. 2. Sitagliptin/Metformin (Janumet) one tab p.o. 1700 3. Trileptal 300 mg p.o. daily 4. Glipizide 10 mg p.o. q.d a.c. 5. Furosemide 20 mg p.o. q.d a.c. 6. Carvedilol/Coreg 25 mg p.o. daily 7. Atorvastatin/Lipitor 40 mg p.o. daily 8. Aspirin 81 mg p.o. daily 9. Levothyroxine/Synthroid 75 mcg p.o. q.d a.c. 10. Oxcarbazepine/Trileptal 600 mg p.o. at bedtime 11. Cholecalciferol/Vitamin D3 1,000 unit p.o. daily 12. Amlodipine 5 mg p.o. daily 13. [place] 3/fish oil one each p.o. daily 14. Furosemide 20 mg p.o. daily p.r.n. NEW PRESCRIPTIONS: 1. Losartan Potassium (Cozaar) 50 mg take one tablet by mouth daily 2. Levaquin 500 mg, take one tablet by mouth daily for five days 3. Prednisone 10 mg take one tablet by mouth twice daily with food for five days DIET INSTRUCTIONS: Consistent carbs ACTIVITY: Get plenty of rest at home. Gradually increase your activity level according to your toleration. SMOKING: Nonsmoker DISEASE SPECIFIC EDUCATION: Bronchitis; CHF; Home medications; New medications; Follow up HOSPITAL COURSE: 75-year-old white female was seen in the office with acute bronchitis. She was extremely fatigued and tired. The patient was given antibiotics but before she could even start in the evening she felt even worse so she was brought to the emergency room where she was examined and checked out and eventually admitted with acute bronchitis, possibility of CHF. The patient was treated with IV Lasix, IV antibiotics, steroids. The patient did not have any symptoms of CHF but she has cardiomyopathy. The echocardiogram done in the hospital showed LVH with enlarged LA cavity and LV ejection fraction 40 to 45%. The patient's chest x-ray did not show any evidence of CHF. She did not have any symptoms of CHF, bronchitis resolved with steroids and antibiotics. She felt better. She was discharged in stable condition on Levofloxacin and Prednisone. CONDITION AT TIME OF DISCHARGE: STABLE LABS AT DISCHARGE: Hemoglobin 13.1, hematocrit 38, WBC 6,300, normal differential. Creatinine 0.7, BUN 14, potassium 4.1. Glucose 174 but the patient is on steroids. T4 and TSH were normal. BNP was 494 on 07/06/16. TIME SPENT: More than 60 minutes. MTDD
== END 2016-07-08 18:22 | disposition home or self-care (01) | DRG 202 ==
LOC: ED 19:37 → MEDSURG B 21:54
PROVIDERS: ADMIT Internal Medicine; ATTEND Internal Medicine
DX: J20.8 Acute bronchitis due to other specified organisms (principal); I50.23 Acute on chronic systolic (congestive) heart failure; J98.11 Atelectasis; I42.9 Cardiomyopathy, unspecified; I51.7 Cardiomegaly; R60.0 Localized edema; I44.7 Left bundle-branch block, unspecified; E11.9 Type 2 diabetes mellitus without complications; E03.9 Hypothyroidism, unspecified; G47.30 Sleep apnea, unspecified; E78.5 Hyperlipidemia, unspecified; I10 Essential (primary) hypertension; K21.9 Gastro-esophageal reflux disease without esophagitis; R56.9 Unspecified convulsions; F03.90 Unspecified dementia, unspecified severity, without behavioral disturbance, psychotic disturbance, mood disturbance, and anxiety; F41.8 Other specified anxiety disorders; M19.90 Unspecified osteoarthritis, unspecified site; Z79.84 Long term (current) use of oral hypoglycemic drugs; Z79.899 Other long term (current) drug therapy; Z99.89 Dependence on other enabling machines and devices
CPT/HCPCS: 36415; 80053; 81001; 82550; 82803; 82962; 83605; 83880; 84145; 84439; 84443; 84484; 85025; 87040; 87086; 87804; 93005; 93010; 94640; 94644; 96365; 96372; 96375; 99284

== ENCOUNTER 2016-09-05 15:36 | Outpatient (CLI) | END 2016-09-05 15:37 | disposition home or self-care (01) | LOC: CAR 15:36 | PROVIDERS: ATTEND Internal Medicine | DX: G47.30 Sleep apnea, unspecified (principal) | CPT/HCPCS: 95810 ==

== ENCOUNTER 2016-09-25 23:22 | Inpatient (IN) ==
[2016-09-25] MEDS ORDERED: LASIX IVP STA (23:25)
[2016-09-25] MEDS ORDERED: XOPENEX 0.63 MG NEB STA (23:26)
[2016-09-25 23:40] LABS: BASOPHILS # (AUTO) 0.1 K/uL (0-0.2); BASOPHILS % (AUTO) 0.6 % (0.0-3.0); EOSINOPHILS # (AUTO) 0.2 K/ul (0.0-0.7); EOSINOPHILS % (AUTO) 1.2 % (0.0-7.0); HEMOGLOBIN 14.9 g/dl (12.0-16.0); LYMPHOCYTES # (AUTO) 3.9 K/uL (0.60-3.4); LYMPHOCYTES % (AUTO) 25.5 (10.0-50.0); MEAN CORPUSCULAR HGB CONC 33.9 (31.8-35.4); MEAN CORPUSCULAR VOLUME 88.5 fl (81.0-99.0); MONOCYTES # (AUTO) 0.8 K/uL (0.4-2.0); MONOCYTES % (AUTO) 5.3 (0-10); NEUTROPHILS # (AUTO) 10.2 K/ul (2.0-6.9); NEUTROPHILS % (AUTO) 66.4; PLATELET COUNT 252 10^3/uL (140-440); RED BLOOD COUNT 4.97 10^6/ul (4.20-5.40); WHITE BLOOD COUNT 15.35 K/ul (4.6-10.2)
[2016-09-25 23:41] LABS: ABG PCO2 40.7 mmHg (35-45); ABG PH 7.339 (7.35-7.45)
[2016-09-25 23:42] LABS: ABG BASE EXCESS -4 (-2.0-2.0); ABG HCO3 21.9 (22.0-26.0); ABG TCO2 23 (22.0-28.0)
[2016-09-25] MEDS ORDERED: LASIX ONE (23:44)
[2016-09-26 00:16] LABS: ALBUMIN 3.7 g/dL (3.4-5.0); ALBUMIN/GLOBULIN RATIO 0.93; ANION GAP 21.3; BILIRUBIN,TOTAL 0.44 mg/dL (0.00-1.20); BUN/CREATININE RATIO 16.53; CALCIUM 9.4 mg/dL (8.2-10.2); CREATININE 1.27 mg/dL (0.60-1.30); POTASSIUM 5.3 mmol/L (3.5-5.10); TOTAL PROTEIN 7.7 g/dL (5.8-8.1); TROPONIN I 0.018 ng/ml (0.0000-0.4000)
[2016-09-26 00:17] LABS: CREATINE KINASE MB 2.3 ng/ml (0.0-3.6)
--- NOTE | 2016-09-26 02:19 | ED.PDOC ---
General ED Provider: Dr. MARGIE ZHANG-ER Chief Complaint: Shortness of Air Stated Complaint: she is sob and "wet sounding" Time Seen by Physician: 23:35 Mode of Arrival: Wheelchair Information Source: Patient, Family Exam Limitations: No limitations Primary Care Provider: MARA TAYLOR Nursing and Triage Documentation Reviewed and Agree: Yes Respiratory Complaint Exam - Shortness of Air Complaint/Exam Onset/Duration: one hour Symptoms Are: Still present Timing: Constant Initial Severity: Mild Current Severity: Moderate Character: Reports: Dyspnea at rest, Dyspnea on exertion, Orthopnea Aggravating: Reports: None Alleviating: Reports: None Associated Signs and Symptoms: Reports: Diaphoresis, Rapid breathing Related History: Reports: Similar episode History of Healthcare-Acquired Pneumonia: No Pulmonary Embolism Risk Factors: Reports: None Cardiac Risk Factors: Reports: None Pseudomonas Risk Factors: Reports: None Tuberculosis Risk Factors: Reports: None Home Oxygen Use: No Recent Stress Test: No Recent Echo/LV Function: No Respiratory Distress: Moderate Stridor Present: No Tracheal Deviation: No Subcutaneous Emphysema: No Accessory Muscle Use: Yes Retractions: Supraclavicular Diminished Breath Sounds: No Prolonged Expiratory Phase: No Unable to Speak Full Sentences: Yes Fatigue: Yes Leg Swelling: No Cornelius's Sign Present: No Grunting Respirations: No Kussmaul Respirations: No Differential Diagnoses: CHF, Pulmonary Edema, Other Quality Indicator For Non-Traumatic Chest Pain/Syncope: EKG Performed Review of Systems - Review Of Systems Constitutional: Reports: No symptoms Eyes: Reports: No symptoms Ears, Nose, Mouth, Throat: Reports: No symptoms Respiratory: Reports: Short of air Cardiac: Reports: No symptoms GI: Reports: No symptoms : Reports: No symptoms Musculoskeletal: Reports: No symptoms Skin: Reports: No symptoms Neurological: Reports: No symptoms Endocrine: Reports: No symptoms Hematologic/Lymphatic: Reports: No symptoms All Other Systems: Reviewed and Negative Past Medical History - Past Medical History Endocrine: Reports: DM 2, Hypothyroid, Dyslipidemia Cardiovascular: Reports: Hypertension, CHF Respiratory: Reports: None Hematological: Reports: None Gastrointestinal: Reports: GERD Genitourinary: Reports: None Neuro/Psych: Reports: Seizure, Depression, Dementia Musculoskeletal: Reports: Arthritis Cancer: Reports: None Last Menstrual Period: UNKNOWN - Surgical History General Surgical History: Reports: Other (cataracts Eye Bilaterally) - Family History Family History: Reports: Diabetes - Social History Smoking Status: Never smoker Hx Substance Use: No Alcohol Screening: None Lives: With family - Immunizations Tetanus Shot up to Date: (UNKNOWN) Physical Exam - Physical Exam Appearance: Well-appearing, No pain distress, Well-nourished Eyes: ALEXIS, EOMI, Conjunctiva clear ENT: Ears normal, Nose normal, Oropharynx normal Neck: Supple Respiratory: Crackles, Rhonchi Cardiovascular: RRR, Pulses normal, No rub, No murmur GI/: Soft, Nontender, No masses, Bowel sounds normal, No Organomegaly Musculoskeletal: Normal strength Skin: Warm, Dry, Normal color Neurological: Sensation intact Psychiatric: Affect appropriate, Mood appropriate Interpretation - Radiology Interpretation Radiology Interpretation By: ED Physician Radiology Results: Positive Exam Interpreted: Portable CXR - EKG Interpretation Time of EKG #1: 02:19 Rate: Tachy Rhythm: Sinus Ectopy: None [place]: NL ST Segment: Normal Re-Evaluation - Re-Evaluation Time of Re-Evaluation: 02:19 (voided 800 cc) Status: Improved Vital Signs Stable: Yes Pain Level: 0 Appearance: NAD Lungs: Clear Skin: Warm and Dry Neuro: Alert and Oriented X3 CV: RRR Physician Notification - Case Discussed Physician Notified: dr taylor Time of Notification: 02:20 Critical Care Note - Critical Care Note Total Time (mins): 0 Course - Course Hematology/Chemistry: 09/25/16 23:35 09/25/16 23:35 Orders, Labs, Meds: Lab Review 09/25/16 09/25/16 23:25 23:35 WBC 15.35 H RBC 4.97 Hgb 14.9 Hct 44.0 MCV 88.5 MCH 30.0 MCHC 33.9 RDW Coeff of Black 14.6 Plt Count 252 Immature Gran % (Auto) 1.0 Neut % (Auto) 66.4 Lymph % (Auto) 25.5 [place] % (Auto) 5.3 Eos % (Auto) 1.2 Baso % (Auto) 0.6 Immature Gran # (Auto) 0.2 Neut # 10.2 H Lymph # 3.9 H [place] # 0.8 Eos # 0.2 Baso # 0.1 Puncture Site Lb O2 Saturation 85.0 L ABG pH 7.339 L ABG pCO2 40.7 ABG pO2 53.0 L* ABG HCO3 21.9 L ABG Total CO2 23 ABG Base Excess -4 L Gregorio Test + FiO2 % 21.0 Sodium 136 Potassium 5.3 H Chloride 101 Carbon Dioxide 19 L Anion Gap 21.3 BUN 21 H Creatinine 1.27 Estimated GFR (MDRD) 41.00 BUN/Creatinine Ratio 16.53 Glucose 338 H Calcium 9.4 Total Bilirubin 0.44 AST 18 ALT 18 Alkaline Phosphatase 78 Total Creatine Kinase 133 CK-MB (CK-2) 2.3 CK-MB (CK-2) % 1.72955 Troponin I 0.0180 B-Natriuretic Peptide 172 H Total Protein 7.7 Albumin 3.7 Globulin 4.0 Albumin/Globulin Ratio 0.93 Orders Category Date Time Status ABG DRAW REQUEST Stat CARDIO 09/25/16 23:25 Completed EKG-(ED ONLY) Stat CARDIO 09/25/16 23:25 Completed NEBULIZER TREATMENT Stat CARDIO 09/25/16 23:26 Completed Cantilever Crane Operator [ED DESTINATION SPECIALIST APPLIED] .ONCE EMERGENCY 09/25/16 23:28 Active IV [ED IV/MEDIPORT/POWERPORT] .ONCE EMERGENCY 09/25/16 23:25 Active RESUSCITATION [ED CODE STATUS] .ONCE EMERGENCY 09/25/16 23:28 Active ABG Stat LAB 09/25/16 23:25 Completed BNP [B-TYPE NATRIURETIC PEPTIDE] Stat LAB 09/25/16 23:35 Completed CBC W/ AUTO DIFF Stat LAB 09/25/16 23:35 Completed COMPREHENSIVE METABOLIC PANEL Stat LAB 09/25/16 23:35 Completed CREATINE KINASE Stat LAB 09/25/16 23:35 Completed TROPONIN I Stat LAB 09/25/16 23:35 Completed 0.9 % Sodium Chloride [Saline Flush] MEDS 09/25/16 23:25 Ordered 1 syr IVF PRN PRN Furosemide [Lasix] MEDS 09/25/16 23:44 Discontinued 100 mg .ROUTE .STK-MED ONE Furosemide [Lasix] MEDS 09/25/16 23:25 Discontinued 80 mg IVP ONCE STA Levalbuterol HCl [Xopenex 0.63 mg] MEDS 09/25/16 23:26 Discontinued 1 vial NEB ONCE STA CXR [CHEST, 1V AP ONLY] Stat RADS 09/25/16 23:27 Taken Medications Generic Name Dose Route Start Last Admin Trade Name Freq PRN Reason Stop Dose Admin Sodium Chloride 1 syr 09/25/16 23:25 09/25/16 23:31 Saline Flush IVF 1 syr PRN PRN Administration To flush IV Discontinued Medications Generic Name Dose Route Start Last Admin Trade Name Femi PRN Reason Stop Dose Admin Furosemide 80 mg 09/25/16 23:25 09/25/16 23:30 Lasix IVP 09/25/16 23:26 80 mg ONCE STA Administration Levalbuterol HCl 1 vial 09/25/16 23:26 09/25/16 23:45 Xopenex 0.63 Mg NEB 09/25/16 23:27 1 vial ONCE STA Administration Vital Signs: Temp Pulse Resp BP Pulse Ox 09/25/16 23:32 97.2 F L 101 H 48 H 181/122 H 84 L Departure - Departure Time of Disposition: 02:19 Disposition: ADMITTED INPATIENT Discharge Problem: Acute respiratory failure Qualifiers: Respiratory failure complication: hypoxia Qualifier Code: (J96.01) Acute respiratory failure with hypoxia CHF exacerbation Qualifiers: Congestive heart failure type: unspecified congestive heart failure type Qualifier Code: (I50.9) Heart failure, unspecified Instructions: Heart Failure (ED) Condition: Good Pt referred to PMD for follow-up: Yes Allergies/Adverse Reactions: Allergies Iodine and Iodide Containing Produc Adverse Reaction (Verified 07/06/16 19:48) Home Medications: Ambulatory Orders Aspirin [Adult Low Dose Aspirin EC] 81 mg PO DAILY 01/04/16 Atorvastatin Calcium [Lipitor] 40 mg PO DAILY 01/04/16 Carvedilol [Coreg] 25 mg PO DAILY 01/04/16 Divalproex Sodium [Depakote] 1,000 mg PO DAILY 01/04/16 Furosemide 20 mg PO QDAC 01/04/16 Glipizide [Glucotrol] 10 mg PO QDAC 01/04/16 Levothyroxine Sodium [Synthroid] 75 mcg PO QDAC 01/04/16 Oxcarbazepine [Trileptal] 300 mg PO DAILY 01/04/16 Sitagliptin Phos/Metformin HCl [Janumet 50-500 mg Tablet] 1 tab PO 1700 Oxcarbazepine [Trileptal] 600 mg PO BEDTIME 01/05/16 Amlodipine Besylate 5 mg PO BEDTIME 07/06/16 Cholecalciferol (Vitamin D3) [Vitamin D3] 1,000 unit PO DAILY 07/06/16 [place]-3 Fatty Acids/Fish Oil [Fish Oil 1,000 mg Capsule] 1 each PO DAILY Furosemide 20 mg PO DAILY PRN 07/07/16 Losartan Potassium [Cozaar] 50 mg PO DAILY #30 tablet 07/08/16 Disposition Discussed With: Patient, Family
[2016-09-26 03:50] VITALS: BMI 31.2
[2016-09-26 05:41] LABS: BASOPHILS # (AUTO) 0.1 K/uL (0-0.2); BASOPHILS % (AUTO) 0.5 % (0.0-3.0); EOSINOPHILS # (AUTO) 0.1 K/ul (0.0-0.7); EOSINOPHILS % (AUTO) 0.5 % (0.0-7.0); HEMATOCRIT 40.2 % (37.0-47.0); HEMOGLOBIN 13.4 g/dl (12.0-16.0); IMMATURE GRANULOCYTE % (AUTO) 0.7 % (0.0-5.0); LYMPHOCYTES # (AUTO) 2.1 K/uL (0.60-3.4); LYMPHOCYTES % (AUTO) 18.9 (10.0-50.0); MEAN CORPUSCULAR HEMOGLOBIN 29.5 pg (27.0-31.0); MEAN CORPUSCULAR HGB CONC 33.3 (31.8-35.4); MEAN CORPUSCULAR VOLUME 88.4 fl (81.0-99.0); MONOCYTES # (AUTO) 0.6 K/uL (0.4-2.0); MONOCYTES % (AUTO) 5.9 (0-10); NEUTROPHILS % (AUTO) 73.5; PLATELET COUNT 192 10^3/uL (140-440); RED BLOOD COUNT 4.55 10^6/ul (4.20-5.40); WHITE BLOOD COUNT 10.87 K/ul (4.6-10.2)
[2016-09-26] MEDS ORDERED: GLUCOTROL ONE (05:59)
[2016-09-26 06:00] LABS: ALBUMIN 3.5 g/dL (3.4-5.0); ALBUMIN/GLOBULIN RATIO 1.06; ANION GAP 18.5; BILIRUBIN,TOTAL 0.42 mg/dL (0.00-1.20); BUN/CREATININE RATIO 26.13; CALCIUM 9.3 mg/dL (8.2-10.2); CREATININE 0.88 mg/dL (0.60-1.30); POTASSIUM 4.5 mmol/L (3.5-5.10); TOTAL PROTEIN 6.8 g/dL (5.8-8.1)
[2016-09-26] MEDS: LASIX IVP SCH (06:10)
[2016-09-26] MEDS: HUMULIN R SUBCUT PRN ×3 (06:10→20:51)
[2016-09-26] MEDS: SYNTHROID PO SCH (06:11)
[2016-09-26] MEDS ORDERED: NON-FORMULARY MEDICATION (Glipizide [Glucotrol] 10 MG) PO SCH ×22 (06:30)
--- NOTE | 2016-09-26 08:02 | DI ---
Exam: Chest one-view. HISTORY: Dyspnea. Comparison: 07/06/2016. Findings: Portable image of the chest demonstrates mildly expanded lungs without pneumothorax. The re is mild alveolar opacity in the right lung base and blunting of the costophrenic angles. The pul monary vasculature appears congested. The cardiac silhouette is within normal limits of size. The thoracic aorta is partially calcified. The skeletal structures appear unchanged. Impressions: Mild right base atelectasis or pneumonia. Pulmonary vascular congestion and probably tiny pleural effusions.
[2016-09-26] MEDS: ASPIRIN EC PO SCH (08:52)
[2016-09-26] MEDS: COREG PO SCH (08:52)
[2016-09-26] MEDS: TRILEPTAL PO SCH ×2 (08:54→20:51)
[2016-09-26] MEDS: DEPAKOTE PO SCH (08:54)
[2016-09-26] MEDS: LIPITOR PO SCH (08:54)
[2016-09-26] MEDS: OMEGA-3 FISH OIL PO SCH (08:55)
[2016-09-26] MEDS: COZAAR PO SCH (08:55)
[2016-09-26] MEDS: JANUVIA PO SCH ×2 (08:56→16:55)
[2016-09-26] MEDS: LOVENOX SUBCUT SCH (08:56)
[2016-09-26] MEDS: VITAMIN D PO SCH (08:56)
[2016-09-26] MEDS: GLUCOPHAGE PO SCH ×2 (08:56→16:54)
[2016-09-26] MEDS ORDERED: NON-FORMULARY MEDICATION (Cholecalciferol (Vitamin D3) [Vitamin D3] 1,000 UNIT) PO SCH ×22 (09:00)
[2016-09-26] MEDS ORDERED: [UNRECOGNIZED DRUG - OTHER] PO SCH (09:00)
[2016-09-26] MEDS ORDERED: NON-FORMULARY MEDICATION (Omega-3 Fatty Acids/Fish Oil [Fish Oil 1,000 Mg Capsule] 1 EACH) PO SCH ×22 (09:00)
[2016-09-26] MEDS ORDERED: SITAGLIPTIN PHOS PO SCH ×2 (09:00→17:00)
[2016-09-26] MEDS ORDERED: NON-FORMULARY MEDICATION (Atorvastatin Calcium [Lipitor] 40 MG) PO SCH ×22 (09:00)
[2016-09-26] MEDS ORDERED: NON-FORMULARY MEDICATION (Oxcarbazepine [Trileptal] 300 MG) PO SCH (09:00)
[2016-09-26] MEDS ORDERED: METFORMIN HCL PO SCH ×2 (09:00→17:00)
[2016-09-26] MEDS ORDERED: NON-FORMULARY MEDICATION (Carvedilol [Coreg] 25 MG) PO SCH ×22 (09:00)
[2016-09-26 09:24] LABS: ABG BASE EXCESS 3 (-2.0-2.0); ABG PCO2 41.4 mmHg (35-45); ABG PH 7.423 (7.35-7.45); ABG TCO2 28 (22.0-28.0)
[2016-09-26] MEDS: TORADOL IVP SCH ×2 (09:55→20:51)
--- NOTE | 2016-09-26 10:52 | PCM.PROG ---
Attending Provider: ATTENDING PROVIDER: Dr. MARA KENT DATE OF SERVICE: 09/26/16 SUBJECTIVE: This 76 year old WHITE/ F was hospitalized 09/26/16 with pulmonary edema and respiration failure. The patient's condition has improved remarkably. She is awake and ready to eat breakfast. REVIEW OF SYSTEMS: CONSTITUTIONAL: No night sweats. No fatigue, malaise, lethargy. No fever or chills. HEENT: Eyes: No visual changes. No eye pain. No eye discharge. ENT: No runny nose. No epistaxis. No sinus pain. No odynophagia. No congestion. RESPIRATORY: No cough, no congestion. No hemoptysis. CARDIOVASCULAR: No angina symptoms. No CHF symptoms. No atypical chest pain for CAD. No palpitations. Mild shortness of breath on exertion. GASTROINTESTINAL: No abdominal pain. No nausea or vomiting. No diarrhea or constipation. No hematemesis. No hematochezia. GENITOURINARY: No urgency. No frequency. No dysuria. No hematuria. No obstructive symptoms. No discharge. No pain. No significant abnormal bleeding. MUSCULOSKELETAL: No musculoskeletal pain; no joint swelling. NEUROLOGICAL: Awake, alert, oriented to time, place and person. No headache. No neck pain. No syncope. No seizures. No dizziness. PSYCHIATRIC: Not anxious. No depression. No suicidal thoughts. No homicidal thoughts. SKIN: No rash. No lesions. No wounds. ENDOCRINE: No unexplained weight loss. No weight gain. HEMATOLOGIC/LYMPHATIC: No anemia. No purpura. No petechiae. No prolonged or excessive bleeding. No palpable lymph nodes. PHYSICAL EXAMINATION: GENERAL: The patient is awake, alert and oriented to time, place and person, lying in bed in no distress. VITAL SIGNS: Temperature 98.6 F, Pulse 74, Respiratory Rate 18, BP 127/78, Pulse Ox 98% HEENT: Head normocephalic, atraumatic. Eyes: Extraocular muscles are intact. Pupils are equal, round and reactive to light and accommodation. Ears: No lesions. Nose appeared normal. Throat: No exudate or erythema. NECK: Supple. No JVD, no carotid bruit. No lymphadenopathy or thyromegaly. LUNGS: Decreased breath sounds with few creps in the bases. Percussion note normal. Chest symmetrical. HEART: S1, S2, no S3. No murmurs. No cyanosis or clubbing. No ascites. Pulses: Dorsalis pedis and posterior tibial pulses +1 to +2 both sides. ABDOMEN: Soft. Non-tender. Bowel sounds active. No CVA tenderness. No mass felt. EXTREMITIES: Trace edema. Full range of motion of all extremities, equal. NEUROLOGIC: No focal deficit. Cranial nerves II through XII are grossly intact. No headache, no double vision or headache. SKIN: Not dry. Intact. Turgor-normal. LYMPHATIC: No palpable lymph nodes/no lymphedema. MUSCULOSKELETAL: Normal joints with no swelling. Muscle tone is normal. LAB REVIEW: 09/26/16 05:05 09/26/16 05:05 09/26/16 05:05: WBC 10.87 H, RBC 4.55, Hgb 13.4, Hct 40.2, MCV 88.4, MCH 29.5, MCHC 33.3, RDW Coeff of Black 14.6, Plt Count 192, Immature Gran % (Auto) 0.7, Neut % (Auto) 73.5, Lymph % (Auto) 18.9, Saline % (Auto) 5.9, Eos % (Auto) 0.5, Baso % (Auto) 0.5, Immature Gran # (Auto) 0.1, Neut # 8.0 H, Lymph # 2.1, Saline # 0.6, Eos # 0.1, Baso # 0.1, Sodium 137, Potassium 4.5, Chloride 99, Carbon Dioxide 24, Anion Gap 18.5, BUN 23 H, Creatinine 0.88, Estimated GFR (MDRD) 62.00, BUN/Creatinine Ratio 26.13, Glucose 199 H D, Calcium 9.3, Total Bilirubin 0.42, AST 16, ALT 17, Alkaline Phosphatase 67, Total Protein 6.8, Albumin 3.5, Globulin 3.3, Albumin/Globulin Ratio 1.06 ASSESSMENT: 1. Pulmonary edema 2. Respiratory failure 3. Congestive heart failure controlled 4. History of diabetes mellitus 5. Hypertension 6. Hypothyroidism 7. Dyslipidemia PLAN: 1. Continue IV Lasix 2. Will repeat chest x-ray in the morning 3. BNP in the morning 4. ABG on room air. 5. Toradol 30mg IV Plan and coordination of the patient's care discussed in the presence of Sheet Metal Layout Worker and nurse. CONDITION: Stable SCRIBED BY: GAETANO GODINEZ, Floors Buffer scribed while in presence of service performed by Dr. MARA KENT on 09/26/16 ([id number])
[2016-09-26] MEDS ORDERED: [UNRECOGNIZED DRUG - OTHER] PO SCH (17:00)
[2016-09-26] MEDS: NORVASC PO SCH (20:50)
[2016-09-26] MEDS ORDERED: OXCARBAZEPINE 600 MG PO SCH (21:00)
[2016-09-26] MEDS ORDERED: TRILEPTAL PO SCH (21:00)
[2016-09-27 04:48] LABS: BASOPHILS # (AUTO) 0.1 K/uL (0-0.2); BASOPHILS % (AUTO) 0.7 % (0.0-3.0); EOSINOPHILS # (AUTO) 0.1 K/ul (0.0-0.7); EOSINOPHILS % (AUTO) 1.7 % (0.0-7.0); HEMATOCRIT 33.9 % (37.0-47.0); HEMOGLOBIN 11.7 g/dl (12.0-16.0); IMMATURE GRANULOCYTE % (AUTO) 0.6 % (0.0-5.0); LYMPHOCYTES # (AUTO) 2.3 K/uL (0.60-3.4); LYMPHOCYTES % (AUTO) 33.1 (10.0-50.0); MEAN CORPUSCULAR HEMOGLOBIN 29.8 pg (27.0-31.0); MEAN CORPUSCULAR HGB CONC 34.5 (31.8-35.4); MEAN CORPUSCULAR VOLUME 86.5 fl (81.0-99.0); MONOCYTES # (AUTO) 0.5 K/uL (0.4-2.0); MONOCYTES % (AUTO) 7.4 (0-10); NEUTROPHILS % (AUTO) 56.5; PLATELET COUNT 165 10^3/uL (140-440); RED BLOOD COUNT 3.92 10^6/ul (4.20-5.40); WHITE BLOOD COUNT 7.07 K/ul (4.6-10.2)
[2016-09-27 05:13] LABS: ALBUMIN/GLOBULIN RATIO 1.11; ANION GAP 16.2; BILIRUBIN,TOTAL 0.51 mg/dL (0.00-1.20); BUN/CREATININE RATIO 41.97; CALCIUM 8.6 mg/dL (8.2-10.2); CREATININE 0.81 mg/dL (0.60-1.30); POTASSIUM 4.2 mmol/L (3.5-5.10); TOTAL PROTEIN 5.7 g/dL (5.8-8.1)
[2016-09-27] MEDS: GLUCOTROL PO SCH (05:59)
[2016-09-27] MEDS: SYNTHROID PO SCH (05:59)
[2016-09-27] MEDS: HUMULIN R SUBCUT PRN ×3 (05:59→20:20)
[2016-09-27] MEDS: LASIX IVP SCH (06:23)
[2016-09-27] MEDS: TORADOL IVP SCH ×2 (08:31→20:15)
[2016-09-27] MEDS: DEPAKOTE PO SCH (08:34)
[2016-09-27] MEDS: COREG PO SCH (08:35)
[2016-09-27] MEDS: LIPITOR PO SCH (08:35)
[2016-09-27] MEDS: COZAAR PO SCH (08:35)
[2016-09-27] MEDS: VITAMIN D PO SCH (08:36)
[2016-09-27] MEDS: OMEGA-3 FISH OIL PO SCH (08:36)
[2016-09-27] MEDS: TRILEPTAL PO SCH ×2 (08:36→20:12)
[2016-09-27] MEDS: JANUVIA PO SCH ×2 (08:36→17:23)
[2016-09-27] MEDS: ASPIRIN EC PO SCH (08:36)
[2016-09-27] MEDS: GLUCOPHAGE PO SCH ×2 (08:37→17:23)
--- NOTE | 2016-09-27 08:56 | PCM.PROG ---
Attending Provider: ATTENDING PROVIDER: Dr. MARA KENT DATE OF SERVICE: 09/27/16 SUBJECTIVE: This 76 year old WHITE/ F was hospitalized 09/26/16 with acute pulmonary edema and respiratory failure. The patient's condition is stable. She is up and about walking with walker with no distress. REVIEW OF SYSTEMS: CONSTITUTIONAL: No night sweats. No fatigue, malaise, lethargy. No fever or chills. HEENT: Eyes: No visual changes. No eye pain. No eye discharge. ENT: No runny nose. No epistaxis. No sinus pain. No odynophagia. No congestion. RESPIRATORY: No cough, no congestion. No hemoptysis. CARDIOVASCULAR: No angina symptoms. No CHF symptoms. No atypical chest pain for CAD. No palpitations. No shortness of breath. GASTROINTESTINAL: No abdominal pain. No nausea or vomiting. No diarrhea or constipation. No hematemesis. No hematochezia. GENITOURINARY: No urgency. No frequency. No dysuria. No hematuria. No obstructive symptoms. No discharge. No pain. No significant abnormal bleeding. MUSCULOSKELETAL: No musculoskeletal pain; no joint swelling. NEUROLOGICAL: Awake, alert, oriented to time, place and person. No headache. No neck pain. No syncope. No seizures. No dizziness. PSYCHIATRIC: Not anxious. No depression. No suicidal thoughts. No homicidal thoughts. SKIN: No rash. No lesions. No wounds. ENDOCRINE: No unexplained weight loss. No weight gain. HEMATOLOGIC/LYMPHATIC: No anemia. No purpura. No petechiae. No prolonged or excessive bleeding. No palpable lymph nodes. PHYSICAL EXAMINATION: GENERAL: The patient is awake, alert and oriented to time, place and person, lying in bed in no distress. VITAL SIGNS: Temperature 97.5 F, Pulse 80, Respiratory Rate 16, BP 120/65, Pulse Ox 96% HEENT: Head normocephalic, atraumatic. Eyes: Extraocular muscles are intact. Pupils are equal, round and reactive to light and accommodation. Ears: No lesions. Nose appeared normal. Throat: No exudate or erythema. NECK: Supple. No JVD, no carotid bruit. No lymphadenopathy or thyromegaly. LUNGS: Decreased breath sounds but clear to auscultation. Percussion note normal. Chest symmetrical. HEART: S1, S2, no S3. No murmurs. No cyanosis or clubbing. No ascites. Pulses: Dorsalis pedis and posterior tibial pulses +1 to +2 both sides. ABDOMEN: Soft. Non-tender. Bowel sounds active. No CVA tenderness. No mass felt. EXTREMITIES: No edema. Full range of motion of all extremities, equal. NEUROLOGIC: No focal deficit. Cranial nerves II through XII are grossly intact. No headache, no double vision or headache. SKIN: Not dry. Intact. Turgor-normal. LYMPHATIC: No palpable lymph nodes/no lymphedema. MUSCULOSKELETAL: Normal joints with no swelling. Muscle tone is normal. LAB REVIEW: 09/27/16 03:45 09/27/16 03:45 09/27/16 03:45: WBC 7.07, RBC 3.92 L, Hgb 11.7 L, Hct 33.9 L D, MCV 86.5, MCH 29.8, MCHC 34.5, RDW Coeff of Black 14.5, Plt Count 165, Immature Gran % (Auto) 0.6, Neut % (Auto) 56.5, Lymph % (Auto) 33.1, [place] % (Auto) 7.4, Eos % (Auto) 1.7, Baso % (Auto) 0.7, Immature Gran # (Auto) 0.0, Neut # 4.0, Lymph # 2.3, [place] # 0.5, Eos # 0.1, Baso # 0.1, Sodium 133 L, Potassium 4.2, Chloride 95 L, Carbon Dioxide 26, Anion Gap 16.2, BUN 34 H, Creatinine 0.81, Estimated GFR ( MDRD) 68.00, BUN/Creatinine Ratio 41.97, Glucose 128 H D, Calcium 8.6, Total Bilirubin 0.51, AST 14 L, ALT 14, Alkaline Phosphatase 59, B-Natriuretic Peptide 255 H, Total Protein 5.7 L, Albumin 3.0 L, Globulin 2.7, Albumin/ Globulin Ratio 1.11 09/26/16 08:34: Puncture Site Rbrach, O2 Saturation 95.0, ABG pH 7.423, ABG pCO2 41.4, ABG pO2 73.0 L, ABG HCO3 27.0 H, ABG Total CO2 28, ABG Base Excess 3 H, FiO2 % 21.0 09/26/16 05:05: Valproic Acid 75.64 ASSESSMENT: 1. Acute pulmonary edema 2. Respiratory failure 3. Congestive Heart Failure PLAN: 1. Continue all medication 2. Will do echo if not done lately 3. CHF education carried out 4. Advised to continue medication on regular basis 5. ABG on room air; pO 73 from 53 and oxygen saturation 85 to 95% on room air Plan and coordination of the patient's care discussed in the presence of Him Tech and nurse. CONDITION: Stable, improved. SCRIBED BY: Ayaka CABRERA scribed while in presence of service performed by Dr. MARA KENT on 09/27/16 ([id number])
[2016-09-27] MEDS: LOVENOX SUBCUT SCH (08:57)
--- NOTE | 2016-09-27 11:05 | DI ---
EXAM: Two views of the chest. History: Short of breath Comparison: Chest radiograph 09/25/2016 Findings: Heart size is borderline enlarged. No focal consolidation. No appreciable pleural fluid and no pneumothorax. No acute osseous abnormalities. Impression: Borderline cardiomegaly with no definite acute process.
--- NOTE | 2016-09-27 11:42 | HP ---
DATE OF SERVICE: 09/26/16 REASON FOR HOSPITALIZATION: Pulmonary edema and respiratory failure HISTORY OF PRESENT ILLNESS: The patient is a 76 year old white female was brought to the emergency room with acute pulmonary edema with acute respiratory failure. ABG done at that time showed pO 53, pCO2 40 with pH 7.33 with 85% saturation. The patient's potassium was 5.3 with creatinine 1.2, BUN 21. CK-MB troponin negative. BNP was 172. WBC 15,000, hgb 14.9, hct 44. The patient was given IV Lasix and she responded to it very well along with oxygen supplements. I saw that patient in the room and the patient was very comfortable and feeling a lot better and was not in distress. REVIEW OF SYSTEMS: CONSTITUTIONAL: No night sweats. Weakness and fatigue. No fever or chills. HEENT: Eyes: No visual changes. No eye pain. No eye discharge. ENT: No runny nose. No epistaxis. No sinus pain. No sore throat. No odynophagia. No ear pain. No congestion. RESPIRATORY: Shortness of breath with mild cough, no congestion. No hemoptysis. CARDIOVASCULAR: No angina symptoms. No CHF symptoms. No atypical chest pain for CAD. No palpitations. Shortness of breath. PND prior to hospitalization. No chest pain. GASTROINTESTINAL: No abdominal pain. No nausea or vomiting. No diarrhea or constipation. No hematemesis. No hematochezia. Poor appetite for past couple of days. GENITOURINARY: No urgency. No frequency. No dysuria. No hematuria. No obstructive symptoms. No discharge. No pain. No significant abnormal bleeding. MUSCULOSKELETAL: No musculoskeletal pain. No joint swelling. No arthritis. NEUROLOGICAL: No headache. No neck pain. No syncope. No seizures. No dizziness. PSYCHIATRIC: Not anxious. No depression. No suicidal thoughts. No homicidal thoughts. SKIN: No rash. No lesions. No wounds. ENDOCRINE: No unexplained weight loss. No weight gain. HEMATOLOGIC/LYMPHATIC: No anemia. No purpura. No petechiae. No prolonged or excessive bleeding. No palpable lymph nodes. PERSONAL/FAMILY/SOCIAL HISTORY: Father , Mother , Brothers 9 of them and sisters 4 of them. The patient is with 6 children. The patient had heart cath done in [facility] which was normal in 2013. PAST MEDICAL/SURGICAL PROBLEMS: Diabetes Mellitus Left bundle branch block Hypothyroidism Early dementia Hypertension Sleep apnea, on C-Pap Dyslipidemia BMI 37 History of seizure disorder by multiple neurologist History of congestive heart failure MEDICATIONS: Aspirin 81mg PO daily Atorvastatin 40mg PO daily Coreg 25mg PO daily Depakote 1,000mg PO twice a day Lasix 20mg Po daily Glucotrol 10mg PO daily Synthroid 75mcg PO daily Trileptal 600mg PO Bedtime Amlodipine 5mg at bedtime Lasix 20mg PO daily Losartan 50mg PO daily Janumet 50-500mg PO daily ALLERGIES: Iodine PHYSICAL EXAMINATION: GENERAL: The patient is oriented to time, place and person. VITAL SIGNS: Temperature 98.6, pulse 74, respiratory rate 18, blood pressure 126/78 and pulse ox 98%. HEENT: Head normocephalic, atraumatic. Eyes: Extraocular muscles are intact. Pupils are equal, round and reactive to light and accommodation. Ears: No lesions. Nose appeared normal. Throat: No exudate or erythema. Face: symmetrical, looks somewhat pale. NECK: Supple. JVP 2cm, no carotid bruit. No lymphadenopathy or thyromegaly. LUNGS: More air entry with few crepitations at the bases. Percussion note normal. Chest symmetrical. HEART: S1, S2, no S3. No murmurs. No cyanosis or clubbing. No ascites. Pulses: Dorsalis pedis and posterior tibial pulses +1 bilaterally. PMI not palpable on auscultation. ABDOMEN: Soft. Nontender. Bowel sounds active. No CVA tenderness. No mass felt. EXTREMITIES: No edema. Full range of motion of all extremities, equal. NEUROLOGIC: No focal deficit. Cranial nerves II through XII are grossly intact. No headache, no double vision or headache. SKIN: Not dry. Intact. Turgor - normal. LYMPHATIC: No palpable lymph nodes/no lymphedema. MUSCULOSKELETAL: Normal joints with no swelling. Muscle tone is normal. LABS: hgb 13.4, hct 40, WBC 10,000 normal differential, creatinine 0.8 and BUN 23. ASSESSMENT: 1. Acute respiratory failure with acute pulmonary edema 2. Congestive heart failure 3. Seizure disorder 4. Diabetes Mellitus 5. Hypothyroidism 6. Dementia 7. Hypertension 8. Obstructive sleep apnea 9. Dyslipidemia 10.History of LV ejection fraction 40-46% with echo done in 2016 PLAN: 1. Continue IV Lasix 2. Continue Oxygen 3. 1 cc Decadron IM 4. Continue the rest of the medication 5. Telemetry 6. Continue the Serial EKG 7. Continue Cardiac markers to rule out acute marker event 8. Education of CHF carried out 9. The patient strongly advised to take her water pill everyday. 10.Advised to take Cozaar as prescribed. CONDITION: Stable PROGNOSIS: Guarded. TIME SPENT: More than 60 minutes. MTDD
[2016-09-27] MEDS: NORVASC PO SCH (20:12)
[2016-09-28 05:15] LABS: BASOPHILS # (AUTO) 0.1 K/uL (0-0.2); BASOPHILS % (AUTO) 0.7 % (0.0-3.0); EOSINOPHILS # (AUTO) 0.1 K/ul (0.0-0.7); EOSINOPHILS % (AUTO) 1.4 % (0.0-7.0); HEMATOCRIT 34.7 % (37.0-47.0); HEMOGLOBIN 12.1 g/dl (12.0-16.0); IMMATURE GRANULOCYTE % (AUTO) 0.7 % (0.0-5.0); LYMPHOCYTES # (AUTO) 2.1 K/uL (0.60-3.4); LYMPHOCYTES % (AUTO) 26.7 (10.0-50.0); MEAN CORPUSCULAR HEMOGLOBIN 29.6 pg (27.0-31.0); MEAN CORPUSCULAR HGB CONC 34.9 (31.8-35.4); MEAN CORPUSCULAR VOLUME 84.8 fl (81.0-99.0); MONOCYTES # (AUTO) 0.6 K/uL (0.4-2.0); MONOCYTES % (AUTO) 7.2 (0-10); NEUTROPHILS # (AUTO) 4.9 K/ul (2.0-6.9); NEUTROPHILS % (AUTO) 63.3; PLATELET COUNT 178 10^3/uL (140-440); RED BLOOD COUNT 4.09 10^6/ul (4.20-5.40); WHITE BLOOD COUNT 7.67 K/ul (4.6-10.2)
[2016-09-28 05:43] LABS: ALBUMIN 3.2 g/dL (3.4-5.0); ALBUMIN/GLOBULIN RATIO 1.07; ANION GAP 16.3; BILIRUBIN,TOTAL 0.51 mg/dL (0.00-1.20); BUN/CREATININE RATIO 39.72; CALCIUM 9.2 mg/dL (8.2-10.2); CREATININE 0.73 mg/dL (0.60-1.30); POTASSIUM 4.3 mmol/L (3.5-5.10); TOTAL PROTEIN 6.2 g/dL (5.8-8.1)
[2016-09-28] MEDS: GLUCOTROL PO SCH (05:43)
[2016-09-28] MEDS: SYNTHROID PO SCH (05:43)
[2016-09-28] MEDS: LASIX IVP SCH (05:44)
[2016-09-28] MEDS: COZAAR PO SCH (08:25)
[2016-09-28] MEDS: OMEGA-3 FISH OIL PO SCH (08:25)
[2016-09-28] MEDS: DEPAKOTE PO SCH (08:25)
[2016-09-28] MEDS: JANUVIA PO SCH (08:25)
[2016-09-28] MEDS: ASPIRIN EC PO SCH (08:25)
[2016-09-28] MEDS: LIPITOR PO SCH (08:25)
[2016-09-28] MEDS: VITAMIN D PO SCH (08:25)
[2016-09-28] MEDS: GLUCOPHAGE PO SCH (08:26)
[2016-09-28] MEDS: COREG PO SCH (08:26)
[2016-09-28] MEDS: TORADOL IVP SCH (08:26)
[2016-09-28] MEDS: TRILEPTAL PO SCH (08:26)
[2016-09-28] MEDS: LOVENOX SUBCUT SCH (08:26)
--- NOTE | 2016-09-28 10:50 | PCM.PROG ---
Attending Provider: ATTENDING PROVIDER: Dr. MARA KENT DATE OF SERVICE: 09/28/16 SUBJECTIVE: This 76 year old WHITE/ F was hospitalized 09/26/16 with acute respiratory failure. The patient has improve remarkably. Oxygen saturation on room air 96%. The patient is forgetful of medication, supervised by daughter who is a very busy person. It is likely that she may not be taking her medications at home. REVIEW OF SYSTEMS: CONSTITUTIONAL: No night sweats. No fatigue, malaise, lethargy. No fever or chills. HEENT: Eyes: No visual changes. No eye pain. No eye discharge. ENT: No runny nose. No epistaxis. No sinus pain. No odynophagia. No congestion. RESPIRATORY: No cough, no congestion. No hemoptysis. CARDIOVASCULAR: No angina symptoms. No CHF symptoms. No atypical chest pain for CAD. No palpitations. No shortness of breath. GASTROINTESTINAL: No abdominal pain. No nausea or vomiting. No diarrhea or constipation. No hematemesis. No hematochezia. GENITOURINARY: No urgency. No frequency. No dysuria. No hematuria. No obstructive symptoms. No discharge. No pain. No significant abnormal bleeding. MUSCULOSKELETAL: No musculoskeletal pain; no joint swelling. NEUROLOGICAL: Awake, alert, oriented to place and person. No headache. No neck pain. No syncope. No seizures. No dizziness. PSYCHIATRIC: Not anxious. No depression. No suicidal thoughts. No homicidal thoughts. SKIN: No rash. No lesions. No wounds. ENDOCRINE: No unexplained weight loss. No weight gain. HEMATOLOGIC/LYMPHATIC: No anemia. No purpura. No petechiae. No prolonged or excessive bleeding. No palpable lymph nodes. PHYSICAL EXAMINATION: GENERAL: The patient is awake, alert and oriented to place and person, lying in bed in no distress. VITAL SIGNS: Temperature 96.9 F, Pulse 66, Respiratory Rate 18, BP 137/78, Pulse Ox 96% HEENT: Head normocephalic, atraumatic. Eyes: Extraocular muscles are intact. Pupils are equal, round and reactive to light and accommodation. Ears: No lesions. Nose appeared normal. Throat: No exudate or erythema. NECK: Supple. No JVD, no carotid bruit. No lymphadenopathy or thyromegaly. LUNGS: Clear to auscultation. Percussion note normal. Chest symmetrical. HEART: S1, S2, no S3. No murmurs. No cyanosis or clubbing. No ascites. Pulses: Dorsalis pedis and posterior tibial pulses +1 to +2 both sides. ABDOMEN: Soft. Non-tender. Bowel sounds active. No CVA tenderness. No mass felt. EXTREMITIES: No edema. Full range of motion of all extremities, equal. NEUROLOGIC: No focal deficit. Cranial nerves II through XII are grossly intact. No headache, no double vision or headache. SKIN: Not dry. Intact. Turgor-normal. LYMPHATIC: No palpable lymph nodes/no lymphedema. MUSCULOSKELETAL: Normal joints with no swelling. Muscle tone is normal. LAB REVIEW: 09/28/16 05:14 09/28/16 05:14 09/28/16 05:14: WBC 7.67, RBC 4.09 L, Hgb 12.1, Hct 34.7 L, MCV 84.8, MCH 29.6, MCHC 34.9, RDW Coeff of Black 14.0, Plt Count 178, Immature Gran % (Auto) 0.7, Neut % (Auto) 63.3, Lymph % (Auto) 26.7, [place] % (Auto) 7.2, Eos % (Auto) 1.4, Baso % (Auto) 0.7, Immature Gran # (Auto) 0.1, Neut # 4.9, Lymph # 2.1, [place] # 0.6, Eos # 0.1, Baso # 0.1, Sodium 127 L, Potassium 4.3, Chloride 92 L, Carbon Dioxide 23, Anion Gap 16.3, BUN 29 H, Creatinine 0.73, Estimated GFR (MDRD) 77.00, BUN/Creatinine Ratio 39.72, Glucose 126 H, Calcium 9.2, Total Bilirubin 0.51, AST 20, ALT 15, Alkaline Phosphatase 64, Total Protein 6.2, Albumin 3.2 L , Globulin 3.0, Albumin/Globulin Ratio 1.07 ASSESSMENT: 1. Congestive heart failure 2. Respiratory failure resolved. PLAN: 1. Discharge home 2. Education about CHF carried out 3. Advised to take medication regular 4. Check on echo if done in past 6 month to evaluate LV function Plan and coordination of the patient's care discussed in the presence of Simulation Educator and nurse. CONDITION: Stable SCRIBED BY: GAETANO GODINEZ, Wheelchair Driver scribed while in presence of service performed by Dr. MARA KENT on 09/28/16 ([id number])
[2016-09-28 10:57] VITALS: BP 130/79; TEMP 97.8
--- NOTE | 2016-09-28 11:33 | CM.DICTOOL ---
ADMISSION: 09/26/16 02:26 DISCHARGE: 09/28/16 DATE OF SERVICE: 09/28/16 FINAL DIAGNOSIS PULMONARY EDEMA RESPIRATORY FAILURE CHF SLEEP APNEA (USES C-PAP) DM, TYPE 2 HYPOTHYROIDISM DYSLIPIDEMIA HYPERTENSION GERD SEIZURES DEMENTIA DEPRESSION/ANXIETY ARTHRITIS BILATERAL CATARACT EXTRACTION LAST VITALS Temp Pulse Resp BP Pulse Ox 97.8 F 98 H 16 130/79 92 L 09/28/16 10:00 09/28/16 10:00 09/28/16 10:00 09/28/16 10:00 09/28/16 10:00 ACTIVE MEDICATIONS Amlodipine Besylate (Norvasc) 5 mg PO BEDTIME [facility] Last Admin: 09/27/16 20:12 Dose: 5 mg Aspirin (Aspirin Ec) 81 mg PO DAILYWM [facility] Last Admin: 09/28/16 08:25 Dose: 81 mg Atorvastatin Calcium (Lipitor) 40 mg PO DAILY [facility] Last Admin: 09/28/16 08:25 Dose: 40 mg Carvedilol (Coreg) 25 mg PO DAILYWM [facility] Last Admin: 09/28/16 08:26 Dose: 25 mg Cholecalciferol (Vitamin D) 1,000 unit PO DAILY [facility] Last Admin: 09/28/16 08:25 Dose: 1,000 unit Divalproex Sodium (Depakote) 1,000 mg PO DAILY [facility] Last Admin: 09/28/16 08:25 Dose: 1,000 mg Fish Oil (Munday-3 Fish Oil) 1,000 mg PO DAILY [facility] Last Admin: 09/28/16 08:25 Dose: 1,000 mg Furosemide (Lasix) 20 mg PO QDAC [facility] Last Admin: 09/28/16 05:44 Dose: 40 mg Furosemide (Lasix) 20 mg PO DAILY PRN SWELLING Glipizide (Glucotrol) 10 mg PO QDAC [facility] Last Admin: 09/28/16 05:43 Dose: 10 mg Levothyroxine Sodium (Synthroid) 75 mcg PO QDAC [facility] Last Admin: 09/28/16 05:43 Dose: 75 mcg Losartan Potassium (Cozaar) 50 mg PO DAILY [facility] Last Admin: 09/28/16 08:25 Dose: 50 mg Oxcarbazepine (Trileptal) 300 mg PO DAILY [facility] Last Admin: 09/28/16 08:26 Dose: 300 mg Oxcarbazepine (Trileptal) 600 mg PO BEDTIME [facility] Last Admin: 09/27/16 20:12 Dose: 600 mg Sitagliptin Phosphate-Metformin (Janumet) 500-50 mg PO 0900,1700 [facility] Last Admin: 09/28/16 08:25 Dose: 50 mg ALLERGIES Iodine and Iodide Containing Produc Adverse Reaction (Verified 07/06/16 19:48) NEW PRESCRIPTIONS: NO NEW PRESCRIPTIONS SMOKING: NONSMOKER DISEASE SPECIFIC EDUCATION: PULMONARY EDEMA RESPIRATORY FAILURE HOME MEDICATIONS COMPLIANCE WITH PHYSICIAN ADVICE FOLLOW UP LAB REVIEW: 09/28/16 05:14 09/28/16 05:14 09/28/16 05:14: WBC 7.67, RBC 4.09 L, Hgb 12.1, Hct 34.7 L, MCV 84.8, MCH 29.6, MCHC 34.9, RDW Coeff of Black 14.0, Plt Count 178, Immature Gran % (Auto) 0.7, Neut % (Auto) 63.3, Lymph % (Auto) 26.7, [place] % (Auto) 7.2, Eos % (Auto) 1.4, Baso % (Auto) 0.7, Immature Gran # (Auto) 0.1, Neut # 4.9, Lymph # 2.1, [place] # 0.6, Eos # 0.1, Baso # 0.1, Sodium 127 L, Potassium 4.3, Chloride 92 L, Carbon Dioxide 23, Anion Gap 16.3, BUN 29 H, Creatinine 0.73, Estimated GFR (MDRD) 77.00, BUN/Creatinine Ratio 39.72, Glucose 126 H, Calcium 9.2, Total Bilirubin 0.51, AST 20, ALT 15, Alkaline Phosphatase 64, Total Protein 6.2, Albumin 3.2 L , Globulin 3.0, Albumin/Globulin Ratio 1.07 09/28/16 04:30: Vitamin B12 363 PLAN: DISCHARGE HOME TODAY RETURN TO SEE DR. KENT IN HIS OFFICE IN ONE WEEK. PLEASE PHONE THE OFFICE TO SCHEDULE YOUR APPOINTMENT ([phone]) RESUME YOUR HOME MEDICATIONS PER LIST PROVIDED BY THE NURSING STAFF NO NEW PRESCRIPTIONS ACTIVITY: GET PLENTY OF REST AT HOME. GRADUALLY INCREASE YOUR ACTIVITY LEVEL ACCORDING TO YOUR TOLERATION DIET: CONSISTENT CARBS SUMMARY: THE PATIENT IS ALERT AND ORIENTED X3. SHE IS FORGETFUL AT TIMES. SHE CURRENTLY RESIDES AT HOME WITH HER DAUGHTER AND SON-IN-LAW. THE DAUGHTER ASSISTS WITH MEDICATIONS AND WITH THE PATIENT'S NEEDS NECESSARY. MS. LONG DESIRES TO RETURN TO HER HOME AT DISCHARGE. SHE HAS THE FOLLOWING DME AT HOME NOW: C-PAP, QUAD CANE AND SHOWER CHAIR. SHE HAS NO HOME HEALTH OR HOMEMAKING SERVICES AT THIS TIME. MS. LONG'S SKIN TURGOR IS INTACT AND WITHOUT DECUBITUS ULCERS AT DISCHARGE. HER HYDRATION STATUS IS IMPROVED. SHE IS FEELING MUCH BETTER AND IS READY TO GO HOME. SHE IS AWARE AND AGREEABLE FOR TODAY'S DISCHARGE PLANS. CURRENT CODE STATUS: DO NOT RESUSCITATE MARA KENT M.D.
[2016-09-28] MEDS: HUMULIN R SUBCUT PRN (11:36)
--- NOTE | 2016-09-29 14:50 | DS ---
DATE OF SERVICE: 09/28/16 FINAL DIAGNOSIS: 1. Pulmonary edema 2. Respiratory failure 3. CHF 4. Sleep apnea (uses CPAP) 5. Diabetes Mellitus, type 2 6. Hypothyroidism 7. Dyslipidemia 8. Hypertension 9. GERD 10. Seizures 11. Dementia 12. Depression/Anxiety 13. Arthritis 14. Bilateral cataract extraction LAST VITALS: Temperature 97.8, pulse 98, respiratory failure 16, blood pressure 130/79 and pulse ox 92%. DISCHARGE INSTRUCTIONS: Discharge home today. Return to see Dr. Griffin in office in one week. Resume home medications as per list provided. No new prescriptions. MEDICATIONS AT DISCHARGE: Norvasc 5mg PO Bedtime Aspirin 81mg PO daily Lipitor 40mg PO daily Coreg 25mg Po daily Vitamin D 1,000 unit PO daily Depakote 1,000mg Po daily [place]-3 1,000mg PO daily Lasix 20mg Po daily PRN swelling Glucotrol 10mg Po QDAC Synthroid 75mcg Po QDAC Cozaar 50mg PO daily Trileptal 300mg PO daily Trileptal 600mg Po bedtime Janumet 500-50mg PO 0900, 1700 ALLERGIES: Iodine and Iodide Containing Produc NEW PRESCRIPTIONS: No new prescriptions DIET INSTRUCTIONS: Consistent Carbs ACTIVITY: Get plenty of rest at home. Gradually increase activity level according to toleration. SMOKING: Nonsmoker DISEASE SPECIFIC EDUCATION: Pulmonary edema Respiratory failure Home medications Compliance with physician advice Followup HOSPITAL COURSE: The patient is a 76 year old white female was hospitalized with acute pulmonary edema and acute respiratory failure. The patient was treated with IV Lasix and she also received some steroids. The patient's condition improved remarkably. At that time of discharge the patient's oxygen saturation on room air was 96%. On admission the patient was in acute respiratory failure. The patient's BNP also dropped to 255. At the time of discharge the patient's hgb was 12, hct 34, WBC 7,600 normal differential, creatinine 0.8, BUN 29, potassium 4.3, glucose 126 then sodium was 127 which will be monitored as an outpatient. The patient is advised to restrict her fluid intake where to the point where just she should have what she needs. Education about CHF carried out. The patient's BMI is high. She was advised to lose some weight. Low salt diet was also advised. Advised to weigh herself everyday, if she gains more than 2 pounds to take extra Lasix. The patient is non-compliant and skips her medication frequently. CONDITION: Stable. TIME SPENT: More than 60 minutes. MTDD
--- NOTE | 2016-09-29 14:51 | PN ---
09/26/16: Level 5 09/27/16: Intermediate 09/28/16: D as in discharge MTDD
== END 2016-09-28 13:25 | disposition home or self-care (01) | DRG 291 ==
LOC: ED 23:22 → MEDSURG B 09-26 02:26
PROVIDERS: ADMIT Internal Medicine; ATTEND Internal Medicine
DX: I50.1 Left ventricular failure, unspecified (principal); J96.01 Acute respiratory failure with hypoxia; I50.9 Heart failure, unspecified; I10 Essential (primary) hypertension; E11.9 Type 2 diabetes mellitus without complications; G40.909 Epilepsy, unspecified, not intractable, without status epilepticus; F03.90 Unspecified dementia, unspecified severity, without behavioral disturbance, psychotic disturbance, mood disturbance, and anxiety; G47.30 Sleep apnea, unspecified; E03.9 Hypothyroidism, unspecified; E78.5 Hyperlipidemia, unspecified; K21.9 Gastro-esophageal reflux disease without esophagitis; F41.8 Other specified anxiety disorders; M19.90 Unspecified osteoarthritis, unspecified site; T50.906A Underdosing of unspecified drugs, medicaments and biological substances, initial encounter; Z79.84 Long term (current) use of oral hypoglycemic drugs; Z79.899 Other long term (current) drug therapy; Z99.89 Dependence on other enabling machines and devices; Z91.138 Patient's unintentional underdosing of medication regimen for other reason
CPT/HCPCS: 36415; 80053; 80164; 82550; 82553; 82607; 82803; 82962; 83880; 84484; 85025; 93005; 93010; 94640; 96374; 99284

== ENCOUNTER 2016-09-29 12:52 | Emergency (ER) ==
[2016-09-29 13:03] VITALS: BP 152/82; TEMP 97.5; BMI 30.7
--- NOTE | 2016-09-29 13:34 | ED.PDOC ---
General ED Provider: Dr. LAKIA ANTUNEZ Chief Complaint: Nausea/Vomiting Stated Complaint: Nausea yesterday; vomiting today Time Seen by Physician: 13:20 Mode of Arrival: Walk-In Information Source: Patient, Family Exam Limitations: No limitations (Hard of Hearing) Primary Care Provider: MARA KENT Referred to ED by: PCP Nursing and Triage Documentation Reviewed and Agree: Yes Review of Systems - Review Of Systems Constitutional: Reports: Malaise Respiratory: Reports: No symptoms. Denies: Cough, Orthopnea, Short of air Cardiac: Reports: No symptoms GI: Reports: Nausea, Vomiting. Denies: Diarrhea Musculoskeletal: Reports: No symptoms All Other Systems: Reviewed and Negative Past Medical History - Past Medical History Previously Healthy: Yes (CHF; released from hospital yesterday) Endocrine: Reports: DM 2, Hypothyroid, Dyslipidemia Cardiovascular: Reports: Hypertension, CHF Respiratory: Reports: None Hematological: Reports: None Gastrointestinal: Reports: GERD Genitourinary: Reports: None Neuro/Psych: Reports: Seizure, Depression, Dementia Musculoskeletal: Reports: Arthritis Cancer: Reports: None Last Menstrual Period: 193 - Surgical History General Surgical History: Reports: Other (cataracts Eye Bilaterally) - Family History Family History: Reports: Diabetes - Social History Smoking Status: Never smoker Hx Substance Use: No Alcohol Screening: None Lives: With family - Immunizations Tetanus Shot up to Date: Yes Physical Exam - Physical Exam Appearance: Well-appearing Eyes: ALEXIS, EOMI Neck: Supple Respiratory: Airway patent, Breath sounds clear, Breath sounds equal, Respirations nonlabored Cardiovascular: RRR, Pulses normal GI/: Soft, Nontender, No masses Musculoskeletal: Normal strength, ROM intact Skin: Warm, Dry, Normal color Neurological: Sensation intact, Motor intact Psychiatric: Affect appropriate, Mood appropriate Critical Care Note - Critical Care Note Total Time (mins): 25 Course - Course Hematology/Chemistry: 09/29/16 14:00 09/29/16 14:00 Orders, Labs, Meds: Lab Review 09/29/16 09/29/16 14:00 14:18 WBC 7.24 RBC 4.42 Hgb 13.2 Hct 37.0 MCV 83.7 MCH 29.9 MCHC 35.7 H RDW Coeff of Black 14.1 Plt Count 203 Immature Gran % (Auto) 1.0 Neut % (Auto) 69.3 Lymph % (Auto) 20.4 [place] % (Auto) 7.5 Eos % (Auto) 1.1 Baso % (Auto) 0.7 Immature Gran # (Auto) 0.1 Neut # 5.0 Lymph # 1.5 [place] # 0.5 Eos # 0.1 Baso # 0.1 Sodium 125 L Potassium 4.6 Chloride 88 L Carbon Dioxide 25 Anion Gap 16.6 BUN 27 H Creatinine 0.87 Estimated GFR (MDRD) 63.00 BUN/Creatinine Ratio 31.03 Glucose 197 H Calcium 9.5 Total Bilirubin 0.59 AST 22 ALT 20 Alkaline Phosphatase 66 Total Protein 7.3 Albumin 3.8 Globulin 3.5 Albumin/Globulin Ratio 1.09 Urine Color Yellow Urine Clarity Clear Urine pH 6.5 Ur Specific [place] 1.015 Urine Protein Trace Urine Glucose (UA) Negative Urine Ketones Trace Urine Blood Negative Urine Nitrite Negative Urine Bilirubin Negative Urine Urobilinogen 0.2 Ur Leukocyte Esterase Trace Urine Microscopic WBC 5-10 Ur Squamous Epith Cells 5-10 Urine Bacteria Trace Hyaline Casts 2-5 Orders Category Date Time Status CBC W/ AUTO DIFF Stat LAB 09/29/16 14:00 Completed COMPREHENSIVE METABOLIC PANEL Stat LAB 09/29/16 14:00 Completed UA [URINALYSIS C & S IF INDICATED] Stat LAB 09/29/16 14:18 Completed URINE CULTURE Routine LAB 09/29/16 14:35 Received Ondansetron [Zofran Odt] MEDS 09/29/16 13:49 Discontinued 4 mg PO ONCE STA Medications Discontinued Medications Generic Name Dose Route Start Last Admin Trade Name Freq PRN Reason Stop Dose Admin Ondansetron HCl 4 mg 09/29/16 13:49 09/29/16 14:03 Zofran Odt PO 09/29/16 13:50 4 mg ONCE STA Administration Vital Signs: Temp Pulse Resp BP Pulse Ox 09/29/16 12:53 97.5 F L 70 20 152/82 H 100 Departure - Departure Time of Disposition: 15:26 Disposition: HOME SELF-CARE Discharge Problem: Urinary tract infection Instructions: Urinary Tract Infection in Women (ED) Condition: Good Pt referred to PMD for follow-up: Yes (Call for appointment) Additional Instructions: Follow up with primary care provider; call for appointment. Take antibiotic as prescribed, nausea medication as needed. Prescriptions: Ondansetron [Zofran Odt] 4 mg PO Q6HR PRN #10 tab.rapdis PRN Reason: Nausea / Vomiting Nitrofurantoin Monohyd/M-Cryst [Macrobid] 100 mg PO BID #14 capsule Allergies/Adverse Reactions: Allergies Iodine and Iodide Containing Produc Adverse Reaction (Verified 07/06/16 19:48) Home Medications: Ambulatory Orders Aspirin [Adult Low Dose Aspirin EC] 81 mg PO DAILY 01/04/16 Atorvastatin Calcium [Lipitor] 40 mg PO DAILY 01/04/16 Carvedilol [Coreg] 25 mg PO DAILY 01/04/16 Divalproex Sodium [Depakote] 1,000 mg PO BID 01/04/16 Glipizide [Glucotrol] 10 mg PO QDAC 01/04/16 Levothyroxine Sodium [Synthroid] 75 mcg PO QDAC 01/04/16 Oxcarbazepine [Trileptal] 300 mg PO DAILY 01/04/16 Oxcarbazepine [Trileptal] 600 mg PO BEDTIME 01/05/16 Amlodipine Besylate 5 mg PO BEDTIME 07/06/16 Cholecalciferol (Vitamin D3) [Vitamin D3] 1,000 unit PO DAILY 07/06/16 [place]-3 Fatty Acids/Fish Oil [Fish Oil 1,000 mg Capsule] 1 each PO DAILY Furosemide 20 mg PO DAILY 07/07/16 Losartan Potassium [Cozaar] 50 mg PO DAILY #30 tablet 07/08/16 Sitagliptin Phos/Metformin HCl [Janumet 50-500 mg Tablet] 1 each PO DAILY Nitrofurantoin Monohyd/M-Cryst [Macrobid] 100 mg PO BID #14 capsule 09/29/16 Ondansetron [Zofran Odt] 4 mg PO Q6HR PRN #10 tab.rapdis 09/29/16 Disposition Discussed With: Patient, Family (Family voices understanding and satisfaction)
[2016-09-29] MEDS ORDERED: ZOFRAN ODT PO STA (13:49)
[2016-09-29 14:07] LABS: BASOPHILS # (AUTO) 0.1 K/uL (0-0.2); BASOPHILS % (AUTO) 0.7 % (0.0-3.0); EOSINOPHILS # (AUTO) 0.1 K/ul (0.0-0.7); EOSINOPHILS % (AUTO) 1.1 % (0.0-7.0); HEMOGLOBIN 13.2 g/dl (12.0-16.0); LYMPHOCYTES # (AUTO) 1.5 K/uL (0.60-3.4); LYMPHOCYTES % (AUTO) 20.4 (10.0-50.0); MEAN CORPUSCULAR HEMOGLOBIN 29.9 pg (27.0-31.0); MEAN CORPUSCULAR HGB CONC 35.7 (31.8-35.4); MEAN CORPUSCULAR VOLUME 83.7 fl (81.0-99.0); MONOCYTES # (AUTO) 0.5 K/uL (0.4-2.0); MONOCYTES % (AUTO) 7.5 (0-10); NEUTROPHILS % (AUTO) 69.3; PLATELET COUNT 203 10^3/uL (140-440); RED BLOOD COUNT 4.42 10^6/ul (4.20-5.40); WHITE BLOOD COUNT 7.24 K/ul (4.6-10.2)
[2016-09-29 14:26] LABS: BILIRUBIN,URINE Negative (NEGATIVE); KETONES,URINE Trace (NEGATIVE); LEUKOCYTE ESTERASE ,URINE Trace (NEGATIVE); NITRITE,URINE Negative (NEGATIVE); PH,URINE 6.5 (5-9); PROTEIN,URINE Trace (NEGATIVE); URINE, BLOOD Negative (NEGATIVE)
[2016-09-29 14:27] LABS: ALBUMIN 3.8 g/dL (3.4-5.0); ALBUMIN/GLOBULIN RATIO 1.09; ANION GAP 16.6; BILIRUBIN,TOTAL 0.59 mg/dL (0.00-1.20); BUN/CREATININE RATIO 31.03; CALCIUM 9.5 mg/dL (8.2-10.2); CREATININE 0.87 mg/dL (0.60-1.30); POTASSIUM 4.6 mmol/L (3.5-5.10); TOTAL PROTEIN 7.3 g/dL (5.8-8.1)
[2016-09-29 14:32] LABS: ADD URINE MICROSCOPIC YES
[2016-09-29 14:34] LABS: BACTERIA,URINE TRACE (NOT PRESENT)
[2016-09-30 18:40] LABS: ABG BASE EXCESS -1 (-2.0-2.0); ABG HCO3 24.1 (22.0-26.0); ABG PCO2 40.4 mmHg (35-45); ABG PH 7.383 (7.35-7.45)
[2016-09-30 18:41] LABS: ABG TCO2 25 (22.0-28.0)
== END 2016-09-29 15:42 | disposition home or self-care (01) ==
LOC: ED 12:52
DX: N39.0 Urinary tract infection, site not specified (principal); I50.9 Heart failure, unspecified; E11.9 Type 2 diabetes mellitus without complications; I10 Essential (primary) hypertension; E03.9 Hypothyroidism, unspecified; E78.5 Hyperlipidemia, unspecified; Z79.899 Other long term (current) drug therapy
CPT/HCPCS: 36415; 80053; 81001; 82803; 85025; 87086; 99283

== ENCOUNTER 2016-09-30 17:50 | Outpatient (CLI) ==
[2016-09-30 18:17] VITALS: BMI 29.2
== END 2016-09-30 17:51 | disposition home or self-care (01) ==
LOC: AMBL 17:50
PROVIDERS: ATTEND Emergency Medicine
DX: R56.9 Unspecified convulsions (principal); R11.10 Vomiting, unspecified; R41.82 Altered mental status, unspecified; R53.1 Weakness; R88.8 Abnormal findings in other body fluids and substances; I44.7 Left bundle-branch block, unspecified

== ENCOUNTER 2016-09-30 18:06 | Emergency (ER) ==
[2016-09-30 18:17] VITALS: BP 176/102; TEMP 97.2; BMI 29.2
--- NOTE | 2016-09-30 18:20 | ED.PDOC ---
General Stated Complaint: EMS called to residence; emesis followed by seizure Time Seen by Physician: 18:05 Mode of Arrival: Ambulance Information Source: Family, EMT Exam Limitations: Clinical condition, Altered mental status (Post ictal) Seen Within Last 72 Hours for Same Complaint By: ED (Nausea, weakness) Nursing and Triage Documentation Reviewed and Agree: Yes <LAKIA ANTUNEZ - Last Filed: 09/30/16 18:18> <MARGIE TORRES - Last Filed: 09/30/16 20:55> ED Provider: Dr. MARGIE TORRES Chief Complaint: Altered Mental Status Primary Care Provider: MARA TAYLOR Neurological Complaint Exam - Seizure Complaint/Exam Onset/Duration: 30 min Symptoms Are: Still present Timing: Intermittent Single or Multiple Episode: one Failed to Regain Consciousness: No Severity: Self-limited Character: Generalized Aggravating: Reports: None Alleviating: Reports: None Associated Signs and Symptoms: Reports: Vomiting, Lethargy SAH Risk Factors: Reports: None Meningitis Risk Factors: Reports: Elderly SDH Risk Factors: Reports: Seizures, Elderly Related Surgical History: Reports: None Active Seizure: Tonic-clonic Carotid Bruit Present: No Cephalohematoma Present: No Tongue Bitten: No Neck Pain Present: No Glascow Coma Scale (see protocol): 14 Nystagmus Present: No Gag Reflex Present: Yes Speech: Present: Slurred Aphasia: Present: None Meningeal Signs Positive: No Focal Weakness: Present: None Focal Sensory Loss: Reports: None Gait: Unsteady Pronator Drift: Present: None Romberg Test Positive: No Babinski Sign: Negative Right, Negative Left Heel to Toe Normal: No Signs of Injury: Present: Normal findings Differential Diagnoses: Drug Toxicity, Intracranial Bleed, Metabolic Disorder, Seizure Disorder <MARGIE TORRES - Last Filed: 09/30/16 20:55> Review of Systems - Review Of Systems Constitutional: Reports: No symptoms, Weakness Eyes: Reports: No symptoms Ears, Nose, Mouth, Throat: Reports: No symptoms Respiratory: Reports: Cough Cardiac: Reports: No symptoms GI: Reports: Nausea, Vomiting : Reports: No symptoms Musculoskeletal: Reports: No symptoms Skin: Reports: No symptoms Neurological: Reports: Cognitive dysfunction Endocrine: Reports: No symptoms Hematologic/Lymphatic: Reports: No symptoms All Other Systems: Reviewed and Negative <MARGIE TORRES - Last Filed: 09/30/16 20:55> Past Medical History - Past Medical History Previously Healthy: Yes (CHF; released from hospital yesterday) Endocrine: Reports: DM 2, Hypothyroid, Dyslipidemia Cardiovascular: Reports: Hypertension, CHF Respiratory: Reports: None Hematological: Reports: None Gastrointestinal: Reports: GERD Genitourinary: Reports: None Neuro/Psych: Reports: Seizure, Depression, Dementia Musculoskeletal: Reports: Arthritis Cancer: Reports: None Last Menstrual Period: unknown - Surgical History General Surgical History: Reports: Other (cataracts Eye Bilaterally) - Family History Family History: Reports: Diabetes - Social History Smoking Status: Never smoker Hx Substance Use: No Alcohol Screening: None <LAKIA ANTUNEZ - Last Filed: 09/30/16 18:18> - Past Medical History Previously Healthy: Yes Endocrine: Reports: DM 2 Cardiovascular: Reports: None Respiratory: Reports: None Hematological: Reports: None Gastrointestinal: Reports: None Genitourinary: Reports: None Neuro/Psych: Reports: None Musculoskeletal: Reports: None Cancer: Reports: None - Family History Family History: Reports: None - Social History Smoking Status: Never smoker Hx Substance Use: No Alcohol Screening: None <MELISSAMARGIE - Last Filed: 09/30/16 20:55> Physical Exam - Physical Exam Appearance: Ill-appearing Eyes: ALEXIS, EOMI, Conjunctiva clear ENT: Ears normal, Nose normal, Oropharynx normal Neck: Supple Respiratory: Airway patent Cardiovascular: RRR, Pulses normal, No rub, No murmur GI/: Soft, Nontender, No masses, Bowel sounds normal, No Organomegaly Musculoskeletal: Normal strength, ROM intact, No edema, No calf tenderness Skin: Warm, Dry, Normal color Neurological: Disoriented Psychiatric: Affect appropriate, Mood appropriate <MARGIE TORRES - Last Filed: 09/30/16 20:55> Interpretation - Radiology Interpretation Radiology Interpretation By: ED Physician Radiology Results: Positive Exam Interpreted: CT Scan - EKG Interpretation Time of EKG #1: 20:11 Rate: Normal Rhythm: Sinus [place]in: Left ST Segment: Normal <MARGIE TORRES Last Filed: 09/30/16 20:55> Re-Evaluation - Re-Evaluation Time of Re-Evaluation: 20:12 Status: Unchanged Vital Signs Stable: No Pain Level: 0 Appearance: NAD Lungs: Clear Skin: Warm and Dry Neuro: Alert and Oriented X3 CV: RRR <MARGIE TORRES - Last Filed: 09/30/16 20:55> Physician Notification - Case Discussed Physician Notified: dr taylor--notified him family requested transfer to [facility] Time of Notification: 20:12 Time of Notification: 20:27 <MARGIE TORRES - Last Filed: 09/30/16 20:55> Critical Care Note - Critical Care Note Total Time (mins): 15 <MARGIE TORRES - Last Filed: 09/30/16 20:55> Course - Course Hematology/Chemistry: 09/30/16 18:20 09/30/16 18:20 <MARGIE TORRES - Last Filed: 09/30/16 20:55> - Course Orders, Labs, Meds: Lab Review 09/30/16 09/30/16 09/30/16 18:20 19:15 19:40 WBC 7.05 RBC 4.73 Hgb 14.0 Hct 40.5 MCV 85.6 MCH 29.6 MCHC 34.6 RDW Coeff of Black 14.4 Plt Count 228 Immature Gran % (Auto) 1.3 Neut % (Auto) 58.0 Lymph % (Auto) 31.9 [place] % (Auto) 7.1 Eos % (Auto) 1.1 Baso % (Auto) 0.6 Immature Gran # (Auto) 0.1 Neut # 4.1 Lymph # 2.3 [place] # 0.5 Eos # 0.1 Baso # 0.0 D-Dimer (Manual) 380.54 Sodium 126 L Potassium 4.5 Chloride 92 L Carbon Dioxide 20 L Anion Gap 18.5 BUN 18 Creatinine 0.88 Estimated GFR (MDRD) 62.00 BUN/Creatinine Ratio 20.45 Glucose 194 H Calcium 9.5 Total Bilirubin 0.50 AST 21 ALT 22 Alkaline Phosphatase 72 Ammonia 60 H Total Creatine Kinase 34 Troponin I 0.0130 Total Protein 7.7 Albumin 3.8 Globulin 3.9 Albumin/Globulin Ratio 0.97 Urine Color Yellow Urine Clarity Slightly Urine pH 5.5 Ur Specific [place] >=1.030 Urine Protein 1+ Urine Glucose (UA) Negative Urine Ketones Trace Urine Blood Trace-intact Urine Nitrite Negative Urine Bilirubin 1+ Urine Urobilinogen 0.2 Ur Leukocyte Esterase Negative Urine Microscopic RBC 0-2 Ur Squamous Epith Cells Not present Urine Mucus 4+ Salicylate Level mg/dL < 5.0 Urine Opiates Screen Negative Ur Oxycodone Screen Negative Urine Methadone Screen Negative Ur Propoxyphene Screen Negative Acetaminophen < 3 L Ur Barbiturates Screen Negative Valproic Acid 63.04 U Tricyclic Antidepress Negative Ur Phencyclidine Scrn Negative Ur Amphetamine Screen Negative U Methamphetamines Scrn Negative U Benzodiazepines Scrn Negative Urine Cocaine Screen Negative U Cannabinoids Screen Negative Orders Category Date Time Status ABG DRAW REQUEST Stat CARDIO 09/30/16 19:26 Completed EKG-(ED ONLY) Stat CARDIO 09/30/16 19:25 Completed TRANSFER TO OUTSIDE FACILITY .TO [facility] 09/30/16 20:27 Active ([place], [place]) WRITE TRANSFER/SBAR NOTE ONCE CARE 09/30/16 20:27 Completed DISCHARGE ASSESSMENT ONCE DISCHARGE 09/30/16 20:27 Completed WRITE DISCHARGE NOTE ONCE DISCHARGE 09/30/16 20:27 Completed Catheter [ED CATHETER INSERTION AND CARE] .ONCE EMERGENCY 09/30/16 19:51 Active ABG Stat LAB 09/30/16 19:25 Ordered ACETAMINOPHEN Stat LAB 09/30/16 18:20 Completed AMMONIA Stat LAB 09/30/16 19:40 Completed ASPIRIN LEVEL [SALICYLATE] Stat LAB 09/30/16 18:20 Completed BLOOD CULTURE Stat LAB 09/30/16 19:40 Received CBC W/ AUTO DIFF Stat LAB 09/30/16 18:20 Completed COMPREHENSIVE METABOLIC PANEL Stat LAB 09/30/16 18:20 Completed CREATINE KINASE Stat LAB 09/30/16 18:20 Completed D-DIMER Stat LAB 09/30/16 18:20 Completed LACTIC ACID Stat LAB 09/30/16 20:44 Received PROCALCITONIN Stat LAB 09/30/16 Ordered TROPONIN I Stat LAB 09/30/16 18:20 Completed URINALYSIS C & S IF INDICATED Stat LAB 09/30/16 19:15 Completed URINE CULTURE Stat LAB 09/30/16 19:15 Received URINE DRUG SCREEN (RAPID FOR ED) [DRUG SCREEN, URINE, LAB 09/30/16 19:15 Completed RAPID] Stat VALPORIC ACID (DEPAKENE) Stat LAB 09/30/16 18:20 Completed Ondansetron HCl/Pf [Zofran 4 mg/2 ml] MEDS 09/30/16 18:47 Discontinued 4 mg .ROUTE .STK-MED ONE CT ABDOMEN/PELVIS WO CONTRAST Stat RADS 09/30/16 19:[address] CHEST W/O CONTRAST Stat RADS 09/30/16 18:[address] HEAD W/O CONTRAST Stat RADS 09/30/16 18:21 Completed Vital Signs: Temp Pulse Resp BP Pulse Ox 09/30/16 18:07 97.2 F L 71 20 176/102 H 93 L Departure <LAKIA ANTUNEZ - Last Filed: 09/30/16 18:18> - Departure Time of Disposition: 20:27 Pt referred to PMD for follow-up: Yes Transfer Form Completed: Yes Disposition Discussed With: Patient, Family <MARGIE TORRES - Last Filed: 09/30/16 20:55> - Departure Disposition: TSF SHORT-TRM HOSP Discharge Problem: Altered mental status Condition: Stable Allergies/Adverse Reactions: Allergies Iodine and Iodide Containing Produc Adverse Reaction (Verified 07/06/16 19:48) Home Medications: Ambulatory Orders Aspirin [Adult Low Dose Aspirin EC] 81 mg PO DAILY 01/04/16 Atorvastatin Calcium [Lipitor] 40 mg PO DAILY 01/04/16 Carvedilol [Coreg] 25 mg PO DAILY 01/04/16 Divalproex Sodium [Depakote] 1,000 mg PO BID 01/04/16 Glipizide [Glucotrol] 10 mg PO QDAC 01/04/16 Levothyroxine Sodium [Synthroid] 75 mcg PO QDAC 01/04/16 Oxcarbazepine [Trileptal] 300 mg PO DAILY 01/04/16 Oxcarbazepine [Trileptal] 600 mg PO BEDTIME 01/05/16 Amlodipine Besylate 5 mg PO BEDTIME 07/06/16 Cholecalciferol (Vitamin D3) [Vitamin D3] 1,000 unit PO DAILY 07/06/16 [place]-3 Fatty Acids/Fish Oil [Fish Oil 1,000 mg Capsule] 1 each PO DAILY Furosemide 20 mg PO DAILY 07/07/16 Losartan Potassium [Cozaar] 50 mg PO DAILY #30 tablet 07/08/16 Sitagliptin Phos/Metformin HCl [Janumet 50-500 mg Tablet] 1 each PO DAILY Nitrofurantoin Monohyd/M-Cryst [Macrobid] 100 mg PO BID #14 capsule 09/29/16 Ondansetron [Zofran Odt] 4 mg PO Q6HR PRN #10 tab.alex 09/29/16
[2016-09-30] MEDS: ZOFRAN 4 MG/2 ML ONE (18:25)
--- NOTE | 2016-09-30 19:06 | CT ---
EXAM: CT scan of the head without contrast HISTORY: Seizure change in mental status TECHNIQUE: Imaging of the head was performed without contrast. 5 mm thin axial images and coronal and sagittal images were provided for interpretation. FINDINGS: The decker-white interface appears normal. The lateral ventricles and cortical sulci are p rominent from atrophy. There is no mass effect. There is mucosal thickening seen within the sphenoi d sinus. The remainder of the paranasal sinuses and mastoid air cells are clear. The calvarium and extracranial soft tissues are normal. IMPRESSION: No acute intracranial abnormalities are seen. Mild chronic small vessel ischemic changes seen within the supratentorial white matter and mild cere bral atrophy. Chronic sinusitis.
[2016-09-30 19:08] LABS: ALBUMIN 3.8 g/dL (3.4-5.0); ALBUMIN/GLOBULIN RATIO 0.97; ANION GAP 18.5; BILIRUBIN,TOTAL 0.5 mg/dL (0.00-1.20); BUN/CREATININE RATIO 20.45; CALCIUM 9.5 mg/dL (8.2-10.2); CREATININE 0.88 mg/dL (0.60-1.30); POTASSIUM 4.5 mmol/L (3.5-5.10); TOTAL PROTEIN 7.7 g/dL (5.8-8.1); TROPONIN I 0.013 ng/ml (0.0000-0.4000)
[2016-09-30 19:09] LABS: BASOPHILS % (AUTO) 0.6 % (0.0-3.0); EOSINOPHILS # (AUTO) 0.1 K/ul (0.0-0.7); EOSINOPHILS % (AUTO) 1.1 % (0.0-7.0); HEMATOCRIT 40.5 % (37.0-47.0); IMMATURE GRANULOCYTE % (AUTO) 1.3 % (0.0-5.0); LYMPHOCYTES # (AUTO) 2.3 K/uL (0.60-3.4); LYMPHOCYTES % (AUTO) 31.9 (10.0-50.0); MEAN CORPUSCULAR HEMOGLOBIN 29.6 pg (27.0-31.0); MEAN CORPUSCULAR HGB CONC 34.6 (31.8-35.4); MEAN CORPUSCULAR VOLUME 85.6 fl (81.0-99.0); MONOCYTES # (AUTO) 0.5 K/uL (0.4-2.0); MONOCYTES % (AUTO) 7.1 (0-10); NEUTROPHILS # (AUTO) 4.1 K/ul (2.0-6.9); PLATELET COUNT 228 10^3/uL (140-440); RED BLOOD COUNT 4.73 10^6/ul (4.20-5.40); WHITE BLOOD COUNT 7.05 K/ul (4.6-10.2)
--- NOTE | 2016-09-30 19:14 | CT ---
EXAM: CT scan of the chest without contrast HISTORY: Possible aspiration, seizure, vomiting TECHNIQUE: Imaging of the chest was performed without contrast. 5 mm thin axial images and coronal and sagittal reconstructions were provided for interpretation. Comparison 09/27/2016 two-view chest. FINDINGS: Patchy infiltrates are seen in the left lung base. There is no pleural separation or sign s of pleural effusion. The heart is normal size. No mediastinal masses are seen. There is a large l eft thyroid goiter. There is suspicion for a a hypodense nodule seen within the left thyroid lobe me asuring up to 2.5 cm AP. There is partial calcification of the nodule. No lytic or blastic lesions are seen within the osseous structures. There is a nonobstructing calculus seen within the inferior pole of the left kidney. IMPRESSION: Left lower lobe pneumonia versus aspiration. Left thyroid goiter. There is suspicion for a superimposed nodule measuring 2.5 cm in the left thyr oid lobe. Thyroid ultrasound can be obtained for further evaluation.
[2016-09-30 19:38] LABS: BILIRUBIN,URINE 1+ (NEGATIVE); KETONES,URINE Trace (NEGATIVE); LEUKOCYTE ESTERASE ,URINE Negative (NEGATIVE); NITRITE,URINE Negative (NEGATIVE); PH,URINE 5.5 (5-9); PROTEIN,URINE 1+ (NEGATIVE); URINE, BLOOD Trace-intact (NEGATIVE)
[2016-09-30 19:42] LABS: ADD URINE MICROSCOPIC YES
--- NOTE | 2016-09-30 20:00 | CT ---
EXAM: CT scan of the abdomen and pelvis without contrast HISTORY: Vomiting, abdominal pain TECHNIQUE: Imaging of the abdomen and pelvis was performed without intravenous contrast. 3 mm thin axial images and coronal and sagittal reconstructions were provided for interpretation. Comparison to 01/04/2016 CT scan of the abdomen and pelvis. FINDINGS: The liver, spleen, pancreas, adrenal glands and kidneys appear normal. The proximal uret ers are normal size. There is a small nonobstructing calculus seen within the inferior pole of the left kidney. The small and large bowel loops are normal caliber. Scattered diverticula are seen wi thin the descending colon and sigmoid colon without acute inflammation. The appendix appears normal . The helical images obtained through the pelvis demonstrate a normal appearance of the rectum, urinar y bladder. There is no free fluid seen within the pelvis. No retroperitoneal abnormalities are see n. No acute abnormalities are seen within the anterior abdominal wall. Patchy infiltrates are suspe cted in the left lung base. No lytic or blastic lesions are seen within the osseous structures. IMPRESSION: There is no bowel obstruction or acute inflammatory change seen within the abdomen and pelvis. 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 There is no ureteral obstruction. Nonobstructing nephrolithiasis seen within the left kidney. There is suspicion for left lower lobe pneumonia.
[2016-09-30 20:12] LABS: COCAIN SCREEN,URINE NEGATIVE (NEGATIVE)
[2016-09-30 20:34] LABS: ACETAMINOPHEN < 3 ug/ml (10-30); SALICYLATE < 5.0 mg/dL (2.8-20.0)
== END 2016-09-30 20:55 | disposition short-term general hospital (02) ==
LOC: ED 18:06
DX: R41.82 Altered mental status, unspecified (principal); G40.89 Other seizures; R11.2 Nausea with vomiting, unspecified; R05 Cough; F03.90 Unspecified dementia, unspecified severity, without behavioral disturbance, psychotic disturbance, mood disturbance, and anxiety; Z79.899 Other long term (current) drug therapy
CPT/HCPCS: 36415; 80053; 80164; 80306; 80307; 81001; 82140; 82550; 83605; 84145; 84484; 85025; 85379; 87040; 87086; 93005; 93010; 96374; 96375; 99285

== ENCOUNTER 2016-12-05 22:40 | Outpatient (CLI) | END 2016-12-05 22:41 | disposition home or self-care (01) | LOC: AMBL 22:40 | PROVIDERS: ATTEND Emergency Medicine | DX: I46.9 Cardiac arrest, cause unspecified (principal) ==